=== PATIENT | male | born 1980 | race Caucasian/White ===

== ENCOUNTER 2018-12-05 18:14 | Emergency (ER) | payer SELFPAY ==
[~2018-12-05] VITALS: Ht 172.7 cm; Wt 92.2 kg
--- NOTE | 2018-12-05 18:59 | NUR ---
PT C/O RT FOOT SWELLING, STARTED IN , WAS SEEN AT [facility] IN JUL & WAS GIVEN ANTIBIOTICS. HX DM. A&OX4, RESP EVEN & UNLABORED, SPEECH CLEAR, SKIN WNL. RT FOOT: OLD LAC LATERAL BOTTOM OF FOOT, + SWELLING AT SITE, PEDAL PULSE STRONG & REG. LT FOOT: 2ND TOE AMPUTATED 02/2018. HX DM
[2018-12-05] MEDS ORDERED: INSU100I34 SC (19:06)
[2018-12-05] MEDS ORDERED: INSU100V9 SC (19:08)
[2018-12-05 19:41] LABS: BASOPHILS # (AUTO) 0.03 x10^3/uL (0-0.1); BASOPHILS % (AUTO) 1 % (0-1); EOSINOPHILS # (AUTO) 0.22 x10^3/uL (0-0.4); EOSINOPHILS % (AUTO) 4 % (1-7); LYMPHOCYTES # (AUTO) 2.18 x10^3/uL (1-3.4); LYMPHOCYTES % (AUTO) 35 % (22-44); MD NO; MEAN CORPUSCULAR HEMOGLOBIN 30.2 pg (27.5-34.5); MEAN CORPUSCULAR HGB CONC 34.5 g/dL (33.2-36.2); MEAN CORPUSCULAR VOLUME 87.6 fL (81-97); MONOCYTES # (AUTO) 0.58 x10^3/uL (0.2-0.8); MONOCYTES % (AUTO) 9 % (2-9); NEUTROPHILS # (AUTO) 3.17 x10^3/uL (1.8-6.8); NEUTROPHILS % (AUTO) 51 % (42-75); PLATELET COUNT 299 x10^3/uL (130-400); RED BLOOD COUNT 4.62 x10^6/uL (4.38-5.82); RED CELL DISTRIBUTION WIDTH 14.7 % (9.4-14.8)
[2018-12-05 19:53] LABS: ALBUMIN 3.3 g/dL (3.4-5.0); ANION GAP 8 mmol/L (5-15); CALCIUM 8.6 mg/dL (8.5-10.1); CHLORIDE 96 mmol/L (98-107); CREATININE 1.24 mg/dL (0.7-1.3)
--- NOTE | 2018-12-05 20:23 | NUR ---
PT RESTING QUIETLY, SIDE RAILS UP X2, CALL LIGHT W/IN REACH. AWAITING DISPOSITION.
[2018-12-05] MEDS ORDERED: SODIUM CHLORIDE 0.9% 1,000ML IVBOLUS ONE (21:00)
--- NOTE | 2018-12-05 21:26 | NUR ---
DRESSING APPLIED TO FOOT WOUND. IV NS INFUSING W-O; SITE PATENT. PT EATING PIZZA. GIRLFRIEND IN ROOM.
[2018-12-05 22:30] VITALS: BP 116/74
== END 2018-12-05 22:32 | disposition home or self-care (01) ==
LOC: ED 19:37
DX: E10.65 Type 1 diabetes mellitus with hyperglycemia (principal); E10.621 Type 1 diabetes mellitus with foot ulcer
CPT/HCPCS: 36415; 73630; 80048; 82040; 83605; 85025; 87040; 96360; 99284; J7030

== ENCOUNTER 2018-12-10 19:16 | Inpatient (IN) | payer OTHER ==
[~2018-12-10] VITALS: Ht 172.7 cm; Wt 90.0 kg
[~2018-12-10 19:16] MED LIST: INSU100I34 SC; INSU100V9 SC
--- NOTE | 2018-12-10 20:27 | NUR ---
report taken from BETHANY Pena. per MD Ortiz, no blood cx needed before IV abx.
[2018-12-10] MEDS ORDERED: VANCOMYCIN PER PHARMACY MC PRN ×2 (20:30→22:30)
[2018-12-10] MEDS ORDERED: AMPICILLIN/SULBACTAM 3 GM in SODIUM CHLORIDE 0.9% 100 ML IV ONE (20:30)
[2018-12-10] MEDS ORDERED: VANCOMYCIN 1,800 MG in SODIUM CHLORIDE 0.9% 250 ML IV ONE (20:30)
[2018-12-10] MEDS ORDERED: PHARMACOKINETIC CONSULTATION MC ONE (20:30)
[2018-12-10 20:32] LABS: BASOPHILS # (AUTO) 0.03 x10^3/uL (0-0.1); BASOPHILS % (AUTO) 1 % (0-1); EOSINOPHILS # (AUTO) 0.23 x10^3/uL (0-0.4); EOSINOPHILS % (AUTO) 3 % (1-7); LYMPHOCYTES # (AUTO) 1.88 x10^3/uL (1-3.4); LYMPHOCYTES % (AUTO) 27 % (22-44); MD NO; MEAN CORPUSCULAR HEMOGLOBIN 29.9 pg (27.5-34.5); MEAN CORPUSCULAR HGB CONC 34.1 g/dL (33.2-36.2); MEAN CORPUSCULAR VOLUME 87.7 fL (81-97); MEAN PLATELET VOLUME 6.8 fL (7.4-10.4); MONOCYTES # (AUTO) 0.44 x10^3/uL (0.2-0.8); MONOCYTES % (AUTO) 6 % (2-9); NEUTROPHILS # (AUTO) 4.31 x10^3/uL (1.8-6.8); NEUTROPHILS % (AUTO) 63 % (42-75); PLATELET COUNT 311 x10^3/uL (130-400); RED BLOOD COUNT 4.52 x10^6/uL (4.38-5.82); RED CELL DISTRIBUTION WIDTH 14.9 % (9.4-14.8)
[2018-12-10] MEDS ORDERED: INSU100I15 SQ (20:37)
[2018-12-10 20:39] LABS: ALANINE AMINOTRANSFERASE 24 U/L (12-78); ALBUMIN 3.1 g/dL (3.4-5.0); ANION GAP 13 mmol/L (5-15); CALCIUM 8.6 mg/dL (8.5-10.1); CHLORIDE 99 mmol/L (98-107); CREATININE 1.25 mg/dL (0.7-1.3)
[2018-12-10 20:46] LABS: ALKALINE PHOSPHATASE 177 U/L (45-117); BILIRUBIN,TOTAL 0.2 mg/dL (0.2-1.0); TOTAL PROTEIN 7.3 g/dL (6.4-8.2)
--- NOTE | 2018-12-10 20:49 | NUR ---
CONTACT ISOLATION PRECAUTIONS IN PLACE D/T HX MRSA
[2018-12-10 21:10] LABS: HCT (SEDRATE) 39.6 % (39.2-51.8)
[2018-12-10] MEDS ORDERED: NS + 20MEQ KCL 1,000 ML IV SCH (22:03)
--- NOTE | 2018-12-10 22:20 | NUR ---
report called to receiving RN Glenys
--- NOTE | 2018-12-10 22:26 | NUR ---
pt a&o, resps even and unlabored. pt denies pain. pt transported to room 455 with s/o. nadn at transport.
[2018-12-10] MEDS ORDERED: POLYETHYLENE GLYCOL 17 GM PACKET PO PRN (22:30)
[2018-12-10] MEDS ORDERED: DEXTROSE 50%, 50ML SYRINGE IVPush PRN (22:30)
[2018-12-10] MEDS: SODIUM CHLORIDE FLUSH 10ML SYR IVF SCH (22:30)
[2018-12-10] MEDS ORDERED: DOCUSATE 100 MG CAPSULE PO PRN (22:30)
[2018-12-10] MEDS ORDERED: ONDANSETRON 2MG/ML, 2ML IVPush PRN (22:30)
[2018-12-10] MEDS ORDERED: HYDROcodone/APAP 5/325 TABLET PO PRN (22:30)
[2018-12-10] MEDS ORDERED: morphine SULFATE 10 MG/ML, 1ML IVPush PRN (22:30)
[2018-12-10] MEDS ORDERED: GLUCAGON 1 MG IM PRN (22:30)
[2018-12-10] MEDS ORDERED: DEXTROSE 4 GM TAB.CHEW PO PRN (22:30)
[2018-12-10 22:39] VITALS: BP 119/65
[2018-12-10] MEDS ORDERED: PHARMACOKINETIC MONITORING MC PRN (23:00)
[2018-12-11] MEDS: INSULIN GLARGINE 100 UNITS/ML, PEN SQ-INSULIN SCH ×2 (00:38→23:05)
[2018-12-11 01:19] VITALS: BP 135/82
[2018-12-11 05:06] LABS: ANION GAP 7 mmol/L (5-15); CALCIUM 8.2 mg/dL (8.5-10.1); CHLORIDE 105 mmol/L (98-107); CREATININE 0.74 mg/dL (0.7-1.3)
[2018-12-11] MEDS: INSULIN LISPRO 100 UNITS/ML, PEN SQ-INSULIN SCH ×4 (07:19→21:27)
[2018-12-11] MEDS ORDERED: GADOBUTROL 10 MMOL/10 ML PFS ONE (09:53)
[2018-12-11 09:55] VITALS: BP 143/93
[2018-12-11] MEDS: SODIUM CHLORIDE FLUSH 10ML SYR IVF SCH ×2 (10:21→21:27)
[2018-12-11] MEDS: VANCOMYCIN 1,800 MG in SODIUM CHLORIDE 0.9% 250 ML IV SCH ×2 (10:21→21:27)
[2018-12-11] MEDS ORDERED: VANCOMYCIN 1,800 MG in SODIUM CHLORIDE 0.9% 250 ML IV SCH (15:00)
[2018-12-11 16:55] VITALS: BP 155/97
[2018-12-11 18:59] VITALS: BP 164/103
[2018-12-12 00:29] VITALS: BP 158/92
[2018-12-12] MEDS: INSULIN LISPRO 100 UNITS/ML, PEN SQ-INSULIN SCH ×4 (07:40→21:58)
[2018-12-12 08:10] VITALS: BP 146/87
[2018-12-12] MEDS: SODIUM CHLORIDE FLUSH 10ML SYR IVF SCH ×3 (09:00→21:58)
[2018-12-12] MEDS: VANCOMYCIN 1,800 MG in SODIUM CHLORIDE 0.9% 250 ML IV SCH ×2 (09:51→21:57)
[2018-12-12] MEDS: PIPERACILLIN/TAZO/PMX 3.375GM 50 ML IV SCH ×2 (12:25→19:45)
[2018-12-12] MEDS ORDERED: DEXTROSE 4 GM TAB.CHEW PO PRN (12:30)
[2018-12-12] MEDS ORDERED: DEXTROSE 50%, 50ML SYRINGE IVPush PRN (12:30)
[2018-12-12] MEDS ORDERED: GLUCAGON 1 MG IM PRN (12:30)
[2018-12-12 15:30] VITALS: BP 143/92
[2018-12-12] MEDS ORDERED: HYDROmorphone 2 MG/ML, 1ML IVPush PRN (17:00)
[2018-12-12] MEDS ORDERED: MEPERIDINE/PF 25MG/0.5ML IVPush PRN (17:00)
[2018-12-12] MEDS ORDERED: HALOPERIDOL 5 MG/ML IV PRN (17:00)
[2018-12-12] MEDS ORDERED: FENTANYL PF 100 MCG/2ML IV PRN (17:00)
[2018-12-12] MEDS ORDERED: PROMETHAZINE 25 MG/ML, 1ML IV PRN (17:00)
[2018-12-12] MEDS ORDERED: DIPHENHYDRAMINE 50 MG/ML, 1ML IVPush PRN (17:00)
[2018-12-12] MEDS ORDERED: PROCHLORPERAZINE 5 MG/ML, 2ML IV PRN (17:00)
[2018-12-12] MEDS ORDERED: hydrALAzine 20 MG/ML, 1ML IV PRN (17:00)
[2018-12-12] MEDS ORDERED: OXYcodone 5 MG/5 ML ORAL.SOL UDC PO PRN (17:00)
[2018-12-12] MEDS ORDERED: METOPROLOL 1 MG/ML, 5ML IV PRN (17:00)
[2018-12-12] MEDS ORDERED: LABETALOL 5MG/ML, 20ML IV PRN (17:00)
[2018-12-12] MEDS ORDERED: PROPOFOL 10 MG/ML, 20ML ONE (17:01)
[2018-12-12] MEDS ORDERED: ONDANSETRON 2MG/ML, 2ML ONE (17:01)
[2018-12-12] MEDS ORDERED: FENTANYL PF 100 MCG/2ML ONE (17:09)
[2018-12-12] MEDS: ACETAMINOPHEN 325 MG TABLET PO PRN ×2 (18:05→22:26)
[2018-12-12] MEDS ORDERED: ACETAMINOPHEN 650 MG/20.3 ML UDC ONE (18:05)
[2018-12-12 18:38] VITALS: BP 126/85
[2018-12-12] MEDS: INSULIN GLARGINE 100 UNITS/ML, PEN SQ-INSULIN SCH (21:57)
[2018-12-13 01:30] VITALS: BP 131/78
[2018-12-13] MEDS: PIPERACILLIN/TAZO/PMX 3.375GM 50 ML IV SCH ×4 (01:41→20:23)
[2018-12-13] MEDS: ACETAMINOPHEN 325 MG TABLET PO PRN ×2 (04:50→11:56)
[2018-12-13 06:58] VITALS: BP 122/76
[2018-12-13] MEDS: INSULIN LISPRO 100 UNITS/ML, PEN SQ-INSULIN SCH ×4 (07:54→20:41)
[2018-12-13] MEDS: SODIUM CHLORIDE FLUSH 10ML SYR IVF SCH ×4 (09:00→20:23)
[2018-12-13] MEDS: VANCOMYCIN 1,800 MG in SODIUM CHLORIDE 0.9% 250 ML IV SCH (09:00)
[2018-12-13] MEDS: VANCOMYCIN 2,000 MG in SODIUM CHLORIDE 0.9% 500 ML IV SCH ×2 (09:34→21:43)
[2018-12-13 13:16] VITALS: BP 125/78
[2018-12-13 20:33] VITALS: BP 144/90
[2018-12-13] MEDS: INSULIN GLARGINE 100 UNITS/ML, PEN SQ-INSULIN SCH (20:40)
[2018-12-14] MEDS: PIPERACILLIN/TAZO/PMX 3.375GM 50 ML IV SCH ×4 (02:01→20:15)
[2018-12-14 03:40] VITALS: BP 119/76
[2018-12-14] MEDS: INSULIN LISPRO 100 UNITS/ML, PEN SQ-INSULIN SCH ×4 (06:12→21:11)
[2018-12-14 07:14] VITALS: BP 115/70
[2018-12-14] MEDS: SODIUM CHLORIDE FLUSH 10ML SYR IVF SCH ×4 (09:13→20:17)
[2018-12-14] MEDS: VANCOMYCIN 2,000 MG in SODIUM CHLORIDE 0.9% 500 ML IV SCH ×2 (10:13→22:45)
[2018-12-14] MEDS: ACETAMINOPHEN 325 MG TABLET PO PRN (10:16)
[2018-12-14 14:34] VITALS: BP 157/97
[2018-12-14] MEDS: INSULIN GLARGINE 100 UNITS/ML, PEN SQ-INSULIN SCH (21:11)
[2018-12-15 01:29] VITALS: BP 149/94
[2018-12-15] MEDS: PIPERACILLIN/TAZO/PMX 3.375GM 50 ML IV SCH ×4 (01:48→20:45)
[2018-12-15] MEDS: VANCOMYCIN 2,000 MG in SODIUM CHLORIDE 0.9% 500 ML IV SCH ×2 (03:20→15:37)
[2018-12-15] MEDS: INSULIN LISPRO 100 UNITS/ML, PEN SQ-INSULIN SCH ×4 (07:55→21:22)
[2018-12-15] MEDS: SODIUM CHLORIDE FLUSH 10ML SYR IVF SCH ×4 (07:58→21:00)
[2018-12-15 08:35] LABS: BASOPHILS # (AUTO) 0.03 x10^3/uL (0-0.1); BASOPHILS % (AUTO) 1 % (0-1); EOSINOPHILS # (AUTO) 0.29 x10^3/uL (0-0.4); EOSINOPHILS % (AUTO) 6 % (1-7); LYMPHOCYTES # (AUTO) 1.58 x10^3/uL (1-3.4); LYMPHOCYTES % (AUTO) 33 % (22-44); MD NO; MEAN CORPUSCULAR HEMOGLOBIN 29.5 pg (27.5-34.5); MEAN CORPUSCULAR HGB CONC 33.8 g/dL (33.2-36.2); MEAN CORPUSCULAR VOLUME 87.3 fL (81-97); MEAN PLATELET VOLUME 6.1 fL (7.4-10.4); MONOCYTES # (AUTO) 0.35 x10^3/uL (0.2-0.8); MONOCYTES % (AUTO) 7 % (2-9); NEUTROPHILS # (AUTO) 2.53 x10^3/uL (1.8-6.8); NEUTROPHILS % (AUTO) 53 % (42-75); PLATELET COUNT 360 x10^3/uL (130-400); RED BLOOD COUNT 4.49 x10^6/uL (4.38-5.82); RED CELL DISTRIBUTION WIDTH 14.5 % (9.4-14.8)
[2018-12-15 08:41] LABS: ANION GAP 6 mmol/L (5-15); CALCIUM 8.6 mg/dL (8.5-10.1); CHLORIDE 104 mmol/L (98-107); CREATININE 0.87 mg/dL (0.7-1.3)
[2018-12-15 08:57] VITALS: BP 138/78
[2018-12-15 13:58] VITALS: BP 149/91
[2018-12-15 19:43] VITALS: BP 167/102
[2018-12-15] MEDS: INSULIN GLARGINE 100 UNITS/ML, PEN SQ-INSULIN SCH (21:23)
[2018-12-16] MEDS: PIPERACILLIN/TAZO/PMX 3.375GM 50 ML IV SCH ×4 (02:19→21:18)
[2018-12-16] MEDS: VANCOMYCIN 2,000 MG in SODIUM CHLORIDE 0.9% 500 ML IV SCH ×2 (03:13→15:15)
[2018-12-16 03:31] VITALS: BP 112/78
[2018-12-16] MEDS: INSULIN LISPRO 100 UNITS/ML, PEN SQ-INSULIN SCH ×4 (06:22→21:37)
[2018-12-16 07:19] VITALS: BP 118/80
[2018-12-16] MEDS: SODIUM CHLORIDE FLUSH 10ML SYR IVF SCH ×2 (08:28→21:00)
[2018-12-16 14:49] VITALS: BP 117/70
[2018-12-16] MEDS ORDERED: VANCOMYCIN 1,000 MG ONE (17:11)
[2018-12-16] MEDS ORDERED: MIDAZOLAM 1 MG/ML, 2ML ONE (17:20)
[2018-12-16] MEDS ORDERED: FENTANYL PF 250 MCG/5ML ONE (17:20)
[2018-12-16] MEDS ORDERED: ROCURONIUM 10 MG/ML,10ML ONE (17:22)
[2018-12-16] MEDS ORDERED: ONDANSETRON 2MG/ML, 2ML ONE (17:22)
[2018-12-16] MEDS ORDERED: PROPOFOL 10 MG/ML, 20ML ONE (17:22)
[2018-12-16] MEDS ORDERED: SUCCINYLCHOLINE 20 MG/ML, 10ML ONE (17:22)
[2018-12-16] MEDS ORDERED: HYDROmorphone 1 MG/ML, 1ML IV PRN (17:30)
[2018-12-16] MEDS ORDERED: LABETALOL 5MG/ML, 20ML IV PRN (17:30)
[2018-12-16] MEDS ORDERED: ONDANSETRON 2MG/ML, 2ML IVPush PRN (17:30)
[2018-12-16] MEDS ORDERED: MEPERIDINE/PF 25MG/0.5ML IVPush PRN (17:30)
[2018-12-16] MEDS ORDERED: ALBUTEROL SULFATE 2.5 MG/3 ML NPPB PRN (17:30)
[2018-12-16] MEDS ORDERED: KETOROLAC 30 MG/1 ML IV PRN (17:30)
[2018-12-16] MEDS ORDERED: FENTANYL PF 100 MCG/2ML IV PRN (17:30)
[2018-12-16] MEDS ORDERED: hydrALAzine 20 MG/ML, 1ML IV PRN (17:30)
[2018-12-16] MEDS ORDERED: METOCLOPRAMIDE 5 MG/ML, 2ML IV PRN (17:30)
[2018-12-16] MEDS ORDERED: OXYcodone 5 MG/5 ML ORAL.SOL UDC PO PRN (17:30)
[2018-12-16] MEDS ORDERED: PROMETHAZINE 25 MG/ML, 1ML IV PRN (17:30)
[2018-12-16 19:30] VITALS: BP 154/93
[2018-12-16] MEDS: ACETAMINOPHEN 325 MG TABLET PO PRN (21:18)
[2018-12-16] MEDS: INSULIN GLARGINE 100 UNITS/ML, PEN SQ-INSULIN SCH (21:37)
[2018-12-16] MEDS: VANCOMYCIN 1,700 MG in SODIUM CHLORIDE 0.9% 250 ML IV SCH (22:13)
[2018-12-16 23:55] VITALS: BP 162/92
[2018-12-17] MEDS: ACETAMINOPHEN 325 MG TABLET PO PRN ×3 (01:24→21:26)
[2018-12-17] MEDS: PIPERACILLIN/TAZO/PMX 3.375GM 50 ML IV SCH ×4 (03:27→22:58)
[2018-12-17 03:35] VITALS: BP 148/82
[2018-12-17 07:15] VITALS: BP 156/97
[2018-12-17] MEDS: INSULIN LISPRO 100 UNITS/ML, PEN SQ-INSULIN SCH ×4 (07:40→21:25)
[2018-12-17] MEDS: SODIUM CHLORIDE FLUSH 10ML SYR IVF SCH ×2 (09:00→21:23)
[2018-12-17 14:10] VITALS: BP 143/85
[2018-12-17 16:01] LABS: CLOSTRIDIUM DIFFICILE ANTIGEN NEGATIVE; CLOSTRIDIUM DIFFICILE TOXIN NEGATIVE (Negative)
[2018-12-17] MEDS: VANCOMYCIN 1,700 MG in SODIUM CHLORIDE 0.9% 250 ML IV SCH (17:51)
[2018-12-17 20:17] VITALS: BP 154/88
[2018-12-17] MEDS: INSULIN GLARGINE 100 UNITS/ML, PEN SQ-INSULIN SCH (21:25)
[2018-12-18 01:06] VITALS: BP 133/78
[2018-12-18] MEDS: PIPERACILLIN/TAZO/PMX 3.375GM 50 ML IV SCH ×2 (04:25→10:16)
[2018-12-18] MEDS: ACETAMINOPHEN 325 MG TABLET PO PRN ×3 (04:25→21:53)
[2018-12-18 05:20] LABS: ANION GAP 5 mmol/L (5-15); CALCIUM 8.8 mg/dL (8.5-10.1); CHLORIDE 104 mmol/L (98-107); CREATININE 1.31 mg/dL (0.7-1.3)
[2018-12-18 05:42] LABS: BASOPHILS # (AUTO) 0.04 x10^3/uL (0-0.1); BASOPHILS % (AUTO) 1 % (0-1); EOSINOPHILS # (AUTO) 0.38 x10^3/uL (0-0.4); EOSINOPHILS % (AUTO) 6 % (1-7); LYMPHOCYTES # (AUTO) 2.55 x10^3/uL (1-3.4); LYMPHOCYTES % (AUTO) 37 % (22-44); MD NO; MEAN CORPUSCULAR HEMOGLOBIN 29.6 pg (27.5-34.5); MEAN CORPUSCULAR HGB CONC 33.8 g/dL (33.2-36.2); MEAN CORPUSCULAR VOLUME 87.8 fL (81-97); MEAN PLATELET VOLUME 6.2 fL (7.4-10.4); MONOCYTES # (AUTO) 0.51 x10^3/uL (0.2-0.8); MONOCYTES % (AUTO) 7 % (2-9); NEUTROPHILS # (AUTO) 3.51 x10^3/uL (1.8-6.8); NEUTROPHILS % (AUTO) 50 % (42-75); PLATELET COUNT 374 x10^3/uL (130-400); RED BLOOD COUNT 4.34 x10^6/uL (4.38-5.82); RED CELL DISTRIBUTION WIDTH 14.4 % (9.4-14.8)
[2018-12-18 07:36] VITALS: BP 152/99
[2018-12-18] MEDS: INSULIN LISPRO 100 UNITS/ML, PEN SQ-INSULIN SCH ×4 (07:59→21:51)
[2018-12-18] MEDS: SODIUM CHLORIDE FLUSH 10ML SYR IVF SCH ×2 (10:17→21:51)
[2018-12-18] MEDS: VANCOMYCIN 1,700 MG in SODIUM CHLORIDE 0.9% 250 ML IV SCH (11:51)
[2018-12-18 13:37] VITALS: BP 169/107
[2018-12-18] MEDS ORDERED: AMLODIPINE 5 MG TABLET PO ONE (16:00)
[2018-12-18] MEDS ORDERED: MAGNESIUM SULFATE PMX 2GM/50ML 50 ML IV ONE (17:00)
[2018-12-18 20:40] VITALS: BP 143/88
[2018-12-18] MEDS: INSULIN GLARGINE 100 UNITS/ML, PEN SQ-INSULIN SCH (21:50)
[2018-12-19 01:39] VITALS: BP 136/88
[2018-12-19] MEDS: ACETAMINOPHEN 325 MG TABLET PO PRN (04:38)
[2018-12-19 06:05] LABS: BASOPHILS # (AUTO) 0.04 x10^3/uL (0-0.1); BASOPHILS % (AUTO) 1 % (0-1); EOSINOPHILS # (AUTO) 0.41 x10^3/uL (0-0.4); EOSINOPHILS % (AUTO) 6 % (1-7); LYMPHOCYTES # (AUTO) 2.43 x10^3/uL (1-3.4); LYMPHOCYTES % (AUTO) 38 % (22-44); MD NO; MEAN CORPUSCULAR HEMOGLOBIN 29.2 pg (27.5-34.5); MEAN CORPUSCULAR HGB CONC 33.7 g/dL (33.2-36.2); MEAN CORPUSCULAR VOLUME 86.7 fL (81-97); MEAN PLATELET VOLUME 6.2 fL (7.4-10.4); MONOCYTES # (AUTO) 0.51 x10^3/uL (0.2-0.8); MONOCYTES % (AUTO) 8 % (2-9); NEUTROPHILS # (AUTO) 3.03 x10^3/uL (1.8-6.8); NEUTROPHILS % (AUTO) 47 % (42-75); PLATELET COUNT 366 x10^3/uL (130-400); RED BLOOD COUNT 4.44 x10^6/uL (4.38-5.82); RED CELL DISTRIBUTION WIDTH 14.7 % (9.4-14.8)
[2018-12-19 06:08] LABS: ANION GAP 7 mmol/L (5-15); CALCIUM 9.5 mg/dL (8.5-10.1); CHLORIDE 103 mmol/L (98-107); CREATININE 1.21 mg/dL (0.7-1.3)
[2018-12-19] MEDS: VANCOMYCIN 1,700 MG in SODIUM CHLORIDE 0.9% 250 ML IV SCH (06:08)
[2018-12-19] MEDS: INSULIN LISPRO 100 UNITS/ML, PEN SQ-INSULIN SCH ×4 (07:07→20:16)
[2018-12-19 07:21] VITALS: BP 139/82
[2018-12-19] MEDS ORDERED: INSULIN GLARGINE 100 UNITS/ML, PEN SQ-INSULIN SCH (09:00)
[2018-12-19] MEDS: AMLODIPINE 5 MG TABLET PO SCH (09:39)
[2018-12-19] MEDS: SODIUM CHLORIDE FLUSH 10ML SYR IVF SCH ×2 (09:39→20:17)
[2018-12-19] MEDS ORDERED: SODIUM CHLORIDE 0.9% 1,000ML IVBOLUS ONE (10:00)
[2018-12-19] MEDS: SODIUM CHLORIDE 0.9% IVPB SCH (13:30)
[2018-12-19] MEDS: DAPTOMYCIN IVPB SCH (13:30)
[2018-12-19 15:24] VITALS: BP 118/69
[2018-12-19 19:12] VITALS: BP 137/87
[2018-12-19] MEDS: INSULIN GLARGINE 100 UNITS/ML, PEN SQ-INSULIN SCH (20:16)
[2018-12-20 00:46] VITALS: BP 134/79
[2018-12-20 05:49] LABS: HCT (SEDRATE) 38.3 % (39.2-51.8)
[2018-12-20 05:59] LABS: C-REACTIVE PROTEIN, QUANT 2.1 mg/dL (0.02-0.49); CHOL/HDL RATIO 4.9; LDL/HDL RATIO 3.2 (0.5-3.0)
[2018-12-20 06:36] LABS: HEMOGLOBIN A1C 11.1 % (4.2-6.3)
[2018-12-20] MEDS: INSULIN LISPRO 100 UNITS/ML, PEN SQ-INSULIN SCH ×4 (07:00→20:45)
[2018-12-20] MEDS ORDERED: INSULIN GLARGINE 100 UNITS/ML, PEN SQ-INSULIN SCH (09:00)
[2018-12-20 09:04] VITALS: BP 131/75
[2018-12-20] MEDS: AMLODIPINE 5 MG TABLET PO SCH (09:06)
[2018-12-20] MEDS: SODIUM CHLORIDE FLUSH 10ML SYR IVF SCH ×2 (09:11→20:45)
[2018-12-20] MEDS: DAPTOMYCIN IVPB SCH (12:31)
[2018-12-20] MEDS: SODIUM CHLORIDE 0.9% IVPB SCH (12:31)
[2018-12-20 14:10] VITALS: BP 156/89
[2018-12-20 19:17] VITALS: BP 147/81
[2018-12-20] MEDS: INSULIN GLARGINE 100 UNITS/ML, PEN SQ-INSULIN SCH (20:46)
[2018-12-21 01:01] VITALS: BP 140/74
[2018-12-21 05:05] LABS: BASOPHILS # (AUTO) 0.06 x10^3/uL (0-0.1); BASOPHILS % (AUTO) 1 % (0-1); EOSINOPHILS # (AUTO) 0.37 x10^3/uL (0-0.4); EOSINOPHILS % (AUTO) 6 % (1-7); LYMPHOCYTES # (AUTO) 1.94 x10^3/uL (1-3.4); LYMPHOCYTES % (AUTO) 29 % (22-44); MD NO; MEAN CORPUSCULAR HEMOGLOBIN 29.9 pg (27.5-34.5); MEAN CORPUSCULAR HGB CONC 34.4 g/dL (33.2-36.2); MEAN CORPUSCULAR VOLUME 86.9 fL (81-97); MONOCYTES # (AUTO) 0.57 x10^3/uL (0.2-0.8); MONOCYTES % (AUTO) 9 % (2-9); NEUTROPHILS # (AUTO) 3.72 x10^3/uL (1.8-6.8); NEUTROPHILS % (AUTO) 56 % (42-75); PLATELET COUNT 337 x10^3/uL (130-400); RED BLOOD COUNT 4.27 x10^6/uL (4.38-5.82); RED CELL DISTRIBUTION WIDTH 14.1 % (9.4-14.8)
[2018-12-21 05:17] LABS: ANION GAP 5 mmol/L (5-15); CALCIUM 9.1 mg/dL (8.5-10.1); CHLORIDE 103 mmol/L (98-107); CREATININE 1.17 mg/dL (0.7-1.3)
[2018-12-21 07:10] VITALS: BP 130/75
[2018-12-21] MEDS: INSULIN LISPRO 100 UNITS/ML, PEN SQ-INSULIN SCH ×4 (07:55→21:22)
[2018-12-21] MEDS: SODIUM CHLORIDE FLUSH 10ML SYR IVF SCH ×2 (09:00→21:21)
[2018-12-21] MEDS ORDERED: INSULIN GLARGINE 100 UNITS/ML, PEN SQ-INSULIN SCH (09:00)
[2018-12-21] MEDS: AMLODIPINE 5 MG TABLET PO SCH (09:34)
[2018-12-21] MEDS: DAPTOMYCIN 600 MG in SODIUM CHLORIDE 0.9% 100 ML IVPB SCH (13:17)
[2018-12-21 13:19] VITALS: BP 131/79
[2018-12-21 20:52] VITALS: BP 152/96
[2018-12-21] MEDS: INSULIN GLARGINE 100 UNITS/ML, PEN SQ-INSULIN SCH (21:21)
[2018-12-22 06:02] VITALS: BP 134/78
[2018-12-22] MEDS: INSULIN LISPRO 100 UNITS/ML, PEN SQ-INSULIN SCH ×6 (07:00→21:36)
[2018-12-22 07:46] VITALS: BP 134/87
[2018-12-22] MEDS ORDERED: INSULIN GLARGINE 100 UNITS/ML, PEN SQ-INSULIN SCH ×2 (09:00→21:00)
[2018-12-22] MEDS: AMLODIPINE 5 MG TABLET PO SCH (09:10)
[2018-12-22] MEDS: SODIUM CHLORIDE FLUSH 10ML SYR IVF SCH ×2 (09:10→21:37)
[2018-12-22] MEDS: DAPTOMYCIN 600 MG in SODIUM CHLORIDE 0.9% 100 ML IVPB SCH (13:02)
[2018-12-22 14:14] VITALS: BP 153/90
[2018-12-22 19:57] VITALS: BP 137/79
[2018-12-23 02:47] VITALS: BP 142/84
[2018-12-23 06:38] VITALS: BP 131/84
[2018-12-23] MEDS: INSULIN LISPRO 100 UNITS/ML, PEN SQ-INSULIN SCH ×4 (07:00→21:29)
[2018-12-23] MEDS: AMLODIPINE 5 MG TABLET PO SCH (09:02)
[2018-12-23] MEDS: INSULIN GLARGINE 100 UNITS/ML, PEN SQ-INSULIN SCH (09:02)
[2018-12-23] MEDS: SODIUM CHLORIDE FLUSH 10ML SYR IVF SCH ×2 (09:02→22:26)
[2018-12-23] MEDS: DAPTOMYCIN 600 MG in SODIUM CHLORIDE 0.9% 100 ML IVPB SCH (12:04)
[2018-12-23 15:10] VITALS: BP 136/81
[2018-12-23 20:17] VITALS: BP 129/81
[2018-12-23] MEDS ORDERED: INSULIN GLARGINE 100 UNITS/ML, PEN SQ-INSULIN SCH (21:00)
[2018-12-24 02:01] VITALS: BP 136/79
[2018-12-24] MEDS: INSULIN LISPRO 100 UNITS/ML, PEN SQ-INSULIN SCH ×3 (07:00→16:10)
[2018-12-24 07:06] VITALS: BP 124/79
[2018-12-24] MEDS: AMLODIPINE 5 MG TABLET PO SCH (08:35)
[2018-12-24] MEDS: SODIUM CHLORIDE FLUSH 10ML SYR IVF SCH ×2 (08:35→21:14)
[2018-12-24] MEDS: INSULIN GLARGINE 100 UNITS/ML, PEN SQ-INSULIN SCH (09:00)
[2018-12-24 09:16] LABS: BASOPHILS % (AUTO) 0 % (0-1); EOSINOPHILS # (AUTO) 0.37 x10^3/uL (0-0.4); EOSINOPHILS % (AUTO) 6 % (1-7); LYMPHOCYTES # (AUTO) 2.23 x10^3/uL (1-3.4); LYMPHOCYTES % (AUTO) 37 % (22-44); MD NO; MEAN CORPUSCULAR HEMOGLOBIN 28.9 pg (27.5-34.5); MEAN CORPUSCULAR HGB CONC 32.9 g/dL (33.2-36.2); MEAN CORPUSCULAR VOLUME 87.7 fL (81-97); MEAN PLATELET VOLUME 6.7 fL (7.4-10.4); MONOCYTES # (AUTO) 0.38 x10^3/uL (0.2-0.8); MONOCYTES % (AUTO) 6 % (2-9); NEUTROPHILS # (AUTO) 2.98 x10^3/uL (1.8-6.8); NEUTROPHILS % (AUTO) 50 % (42-75); PLATELET COUNT 344 x10^3/uL (130-400); RED BLOOD COUNT 4.64 x10^6/uL (4.38-5.82); RED CELL DISTRIBUTION WIDTH 14.1 % (9.4-14.8)
[2018-12-24] MEDS ORDERED: DEXTROSE 5% 1,000 ML IV SCH (09:30)
[2018-12-24] MEDS ORDERED: DEXTROSE 50%, 50ML SYRINGE IVPush ONE (09:30)
[2018-12-24 09:33] LABS: ANION GAP 7 mmol/L (5-15); CHLORIDE 104 mmol/L (98-107)
[2018-12-24 09:38] LABS: CALCIUM 9.5 mg/dL (8.5-10.1); CREATININE 1.14 mg/dL (0.7-1.3)
[2018-12-24] MEDS: DAPTOMYCIN 600 MG in SODIUM CHLORIDE 0.9% 100 ML IVPB SCH (12:59)
[2018-12-24 13:43] VITALS: BP 133/82
[2018-12-24 19:29] VITALS: BP 143/85
[2018-12-25 00:41] VITALS: BP 138/87
[2018-12-25 07:47] VITALS: BP 109/74
[2018-12-25] MEDS: INSULIN GLARGINE 100 UNITS/ML, PEN SQ-INSULIN SCH (07:53)
[2018-12-25] MEDS: INSULIN LISPRO 100 UNITS/ML, PEN SQ-INSULIN SCH ×3 (07:54→16:31)
[2018-12-25] MEDS: AMLODIPINE 5 MG TABLET PO SCH (08:20)
[2018-12-25] MEDS: SODIUM CHLORIDE FLUSH 10ML SYR IVF SCH ×2 (08:21→22:47)
[2018-12-25] MEDS: DAPTOMYCIN 600 MG in SODIUM CHLORIDE 0.9% 100 ML IVPB SCH (11:55)
[2018-12-25 13:44] VITALS: BP 124/74
[2018-12-25 21:28] VITALS: BP 120/62
[2018-12-25 23:01] VITALS: BP 138/83
[2018-12-26 02:24] VITALS: BP 147/82
[2018-12-26 07:17] VITALS: BP 127/83
[2018-12-26] MEDS: AMLODIPINE 5 MG TABLET PO SCH (07:39)
[2018-12-26] MEDS: INSULIN LISPRO 100 UNITS/ML, PEN SQ-INSULIN SCH ×3 (07:40→16:20)
[2018-12-26] MEDS: SODIUM CHLORIDE FLUSH 10ML SYR IVF SCH ×2 (07:42→20:17)
[2018-12-26] MEDS: INSULIN GLARGINE 100 UNITS/ML, PEN SQ-INSULIN SCH (08:56)
[2018-12-26] MEDS: DAPTOMYCIN 600 MG in SODIUM CHLORIDE 0.9% 100 ML IVPB SCH (11:58)
[2018-12-26 12:19] VITALS: BP 137/89
[2018-12-26 20:48] VITALS: BP 128/67
[2018-12-27 01:05] VITALS: BP 120/63
[2018-12-27] MEDS: INSULIN LISPRO 100 UNITS/ML, PEN SQ-INSULIN SCH ×3 (07:00→16:44)
[2018-12-27 08:40] VITALS: BP 111/69
[2018-12-27] MEDS: AMLODIPINE 5 MG TABLET PO SCH (09:46)
[2018-12-27] MEDS: SODIUM CHLORIDE FLUSH 10ML SYR IVF SCH ×2 (09:47→21:57)
[2018-12-27] MEDS: INSULIN GLARGINE 100 UNITS/ML, PEN SQ-INSULIN SCH (09:47)
[2018-12-27] MEDS: DAPTOMYCIN 600 MG in SODIUM CHLORIDE 0.9% 100 ML IVPB SCH (12:49)
[2018-12-27 14:40] VITALS: BP 112/74
[2018-12-27 19:28] VITALS: BP_SYST 103; BP_SYST 150; BP_DIAS 63; BP_DIAS 85
[2018-12-28 01:24] VITALS: BP 152/76
[2018-12-28 06:37] LABS: BASOPHILS # (AUTO) 0.05 x10^3/uL (0-0.1); BASOPHILS % (AUTO) 1 % (0-1); EOSINOPHILS # (AUTO) 0.39 x10^3/uL (0-0.4); EOSINOPHILS % (AUTO) 6 % (1-7); LYMPHOCYTES # (AUTO) 2.15 x10^3/uL (1-3.4); LYMPHOCYTES % (AUTO) 35 % (22-44); MD NO; MEAN CORPUSCULAR HEMOGLOBIN 29.4 pg (27.5-34.5); MEAN CORPUSCULAR HGB CONC 34.1 g/dL (33.2-36.2); MEAN CORPUSCULAR VOLUME 86.4 fL (81-97); MEAN PLATELET VOLUME 7.1 fL (7.4-10.4); MONOCYTES % (AUTO) 6 % (2-9); NEUTROPHILS # (AUTO) 3.23 x10^3/uL (1.8-6.8); NEUTROPHILS % (AUTO) 52 % (42-75); PLATELET COUNT 308 x10^3/uL (130-400); RED BLOOD COUNT 4.54 x10^6/uL (4.38-5.82); RED CELL DISTRIBUTION WIDTH 13.8 % (9.4-14.8)
[2018-12-28 06:38] LABS: HCT (SEDRATE) 39.3 % (39.2-51.8)
[2018-12-28 06:49] LABS: ALANINE AMINOTRANSFERASE 29 U/L (12-78); ALBUMIN 3.2 g/dL (3.4-5.0); ANION GAP 5 mmol/L (5-15); C-REACTIVE PROTEIN, QUANT 0.72 mg/dL (0.02-0.49); CALCIUM 8.6 mg/dL (8.5-10.1); CHLORIDE 101 mmol/L (98-107); CREATININE 1.27 mg/dL (0.7-1.3)
[2018-12-28 06:51] LABS: ALKALINE PHOSPHATASE 115 U/L (45-117); BILIRUBIN,TOTAL 0.3 mg/dL (0.2-1.0); CREATINE KINASE, TOTAL 160 U/L (39-308); TOTAL PROTEIN 7.6 g/dL (6.4-8.2)
[2018-12-28 06:59] VITALS: BP 136/83
[2018-12-28] MEDS: INSULIN LISPRO 100 UNITS/ML, PEN SQ-INSULIN SCH ×5 (08:01→20:53)
[2018-12-28] MEDS: AMLODIPINE 5 MG TABLET PO SCH (08:48)
[2018-12-28] MEDS: INSULIN GLARGINE 100 UNITS/ML, PEN SQ-INSULIN SCH (08:48)
[2018-12-28] MEDS: SODIUM CHLORIDE FLUSH 10ML SYR IVF SCH ×2 (08:48→20:54)
[2018-12-28] MEDS: DAPTOMYCIN 600 MG in SODIUM CHLORIDE 0.9% 100 ML IVPB SCH (11:48)
[2018-12-28 14:32] VITALS: BP 132/74
[2018-12-28] MEDS ORDERED: INSULIN LISPRO 100 UNITS/ML, PEN SQ-INSULIN SCH (16:00)
[2018-12-28 19:24] VITALS: BP 146/84
[2018-12-29 02:10] VITALS: BP 133/74
[2018-12-29 07:56] VITALS: BP 120/76
[2018-12-29] MEDS: AMLODIPINE 5 MG TABLET PO SCH (08:55)
[2018-12-29] MEDS: INSULIN LISPRO 100 UNITS/ML, PEN SQ-INSULIN SCH ×4 (08:56→21:07)
[2018-12-29] MEDS: INSULIN GLARGINE 100 UNITS/ML, PEN SQ-INSULIN SCH (08:56)
[2018-12-29] MEDS: SODIUM CHLORIDE FLUSH 10ML SYR IVF SCH ×2 (09:00→21:06)
[2018-12-29] MEDS: DAPTOMYCIN 600 MG in SODIUM CHLORIDE 0.9% 100 ML IVPB SCH (11:42)
[2018-12-29 14:30] VITALS: BP 115/69
[2018-12-29 20:08] VITALS: BP 118/75
[2018-12-30 02:00] VITALS: BP 142/81
[2018-12-30] MEDS: INSULIN LISPRO 100 UNITS/ML, PEN SQ-INSULIN SCH ×4 (06:26→21:38)
[2018-12-30 08:35] VITALS: BP 104/72
[2018-12-30] MEDS: SODIUM CHLORIDE FLUSH 10ML SYR IVF SCH ×2 (08:52→21:31)
[2018-12-30] MEDS: AMLODIPINE 5 MG TABLET PO SCH (08:52)
[2018-12-30] MEDS: INSULIN GLARGINE 100 UNITS/ML, PEN SQ-INSULIN SCH (10:04)
[2018-12-30] MEDS: DAPTOMYCIN 600 MG in SODIUM CHLORIDE 0.9% 100 ML IVPB SCH (12:33)
[2018-12-30 13:45] VITALS: BP 136/78
[2018-12-30 19:21] VITALS: BP 145/80
[2018-12-31 01:05] VITALS: BP 135/81
[2018-12-31] MEDS: INSULIN LISPRO 100 UNITS/ML, PEN SQ-INSULIN SCH ×4 (07:00→21:38)
[2018-12-31 08:13] VITALS: BP 128/84
[2018-12-31] MEDS: AMLODIPINE 5 MG TABLET PO SCH (08:53)
[2018-12-31] MEDS: SODIUM CHLORIDE FLUSH 10ML SYR IVF SCH ×2 (08:55→21:27)
[2018-12-31] MEDS: INSULIN GLARGINE 100 UNITS/ML, PEN SQ-INSULIN SCH (08:55)
[2018-12-31] MEDS: DAPTOMYCIN 600 MG in SODIUM CHLORIDE 0.9% 100 ML IVPB SCH (12:35)
[2018-12-31 13:26] VITALS: BP 144/69
[2018-12-31 19:57] VITALS: BP 139/61
[2019-01-01 01:20] VITALS: BP 144/73
[2019-01-01 07:49] VITALS: BP 126/81
[2019-01-01] MEDS: INSULIN LISPRO 100 UNITS/ML, PEN SQ-INSULIN SCH ×4 (08:14→21:58)
[2019-01-01] MEDS: SODIUM CHLORIDE FLUSH 10ML SYR IVF SCH ×2 (09:00→21:43)
[2019-01-01] MEDS: AMLODIPINE 5 MG TABLET PO SCH (09:32)
[2019-01-01] MEDS: INSULIN GLARGINE 100 UNITS/ML, PEN SQ-INSULIN SCH ×3 (09:32→21:58)
[2019-01-01] MEDS: DAPTOMYCIN 600 MG in SODIUM CHLORIDE 0.9% 100 ML IVPB SCH (12:32)
[2019-01-01 14:00] VITALS: BP 132/85
[2019-01-01 18:40] VITALS: BP 136/59
[2019-01-02 01:14] VITALS: BP 141/68
[2019-01-02] MEDS: INSULIN LISPRO 100 UNITS/ML, PEN SQ-INSULIN SCH ×4 (06:32→21:01)
[2019-01-02 06:55] VITALS: BP 120/77
[2019-01-02] MEDS: AMLODIPINE 5 MG TABLET PO SCH (08:45)
[2019-01-02] MEDS: INSULIN GLARGINE 100 UNITS/ML, PEN SQ-INSULIN SCH ×2 (08:45→21:00)
[2019-01-02] MEDS: SODIUM CHLORIDE FLUSH 10ML SYR IVF SCH ×2 (08:45→21:00)
[2019-01-02] MEDS: DAPTOMYCIN 600 MG in SODIUM CHLORIDE 0.9% 100 ML IVPB SCH (12:36)
[2019-01-02 14:15] VITALS: BP 137/81
[2019-01-02 22:38] VITALS: BP 130/75
[2019-01-03 03:56] VITALS: BP 119/69
[2019-01-03 04:15] LABS: MEAN CORPUSCULAR HEMOGLOBIN 29.7 pg (27.5-34.5); MEAN CORPUSCULAR VOLUME 87.6 fL (81-97); MEAN PLATELET VOLUME 6.9 fL (7.4-10.4); PLATELET COUNT 261 x10^3/uL (130-400)
[2019-01-03 04:20] LABS: ANION GAP 3 mmol/L (5-15); CALCIUM 8.4 mg/dL (8.5-10.1); CHLORIDE 106 mmol/L (98-107)
[2019-01-03 04:29] LABS: BASOPHILS # (AUTO) 0.08 x10^3/uL (0-0.1); BASOPHILS % (AUTO) 1 % (0-1); EOSINOPHILS # (AUTO) 0.46 x10^3/uL (0-0.4); EOSINOPHILS % (AUTO) 6 % (1-7); LYMPHOCYTES # (AUTO) 2.22 x10^3/uL (1-3.4); LYMPHOCYTES % (AUTO) 31 % (22-44); MD SCAN; MONOCYTES # (AUTO) 0.51 x10^3/uL (0.2-0.8); MONOCYTES % (AUTO) 7 % (2-9); NEUTROPHILS # (AUTO) 3.92 x10^3/uL (1.8-6.8); NEUTROPHILS % (AUTO) 55 % (42-75)
[2019-01-03] MEDS: INSULIN LISPRO 100 UNITS/ML, PEN SQ-INSULIN SCH ×4 (07:00→21:15)
[2019-01-03 07:35] VITALS: BP 127/80
[2019-01-03] MEDS: INSULIN GLARGINE 100 UNITS/ML, PEN SQ-INSULIN SCH ×2 (09:00→21:16)
[2019-01-03] MEDS ORDERED: INSULIN GLARGINE 100 UNITS/ML, PEN SQ-INSULIN ONE ×2 (09:00→09:30)
[2019-01-03] MEDS: AMLODIPINE 5 MG TABLET PO SCH (09:22)
[2019-01-03] MEDS: SODIUM CHLORIDE FLUSH 10ML SYR IVF SCH ×2 (09:22→21:14)
[2019-01-03] MEDS: DAPTOMYCIN 600 MG in SODIUM CHLORIDE 0.9% 100 ML IVPB SCH (12:13)
[2019-01-03 12:50] VITALS: BP 123/7
[2019-01-03 19:10] VITALS: BP 152/83
[2019-01-04 02:19] VITALS: BP 146/77
[2019-01-04 05:21] LABS: HCT (SEDRATE) 36.5 % (39.2-51.8)
[2019-01-04 05:23] LABS: BASOPHILS # (AUTO) 0.03 x10^3/uL (0-0.1); BASOPHILS % (AUTO) 0 % (0-1); EOSINOPHILS # (AUTO) 0.35 x10^3/uL (0-0.4); EOSINOPHILS % (AUTO) 4 % (1-7); LYMPHOCYTES % (AUTO) 18 % (22-44); MD NO; MEAN CORPUSCULAR HEMOGLOBIN 29.7 pg (27.5-34.5); MEAN CORPUSCULAR HGB CONC 34.3 g/dL (33.2-36.2); MEAN CORPUSCULAR VOLUME 86.7 fL (81-97); MEAN PLATELET VOLUME 6.9 fL (7.4-10.4); MONOCYTES # (AUTO) 0.53 x10^3/uL (0.2-0.8); MONOCYTES % (AUTO) 6 % (2-9); NEUTROPHILS # (AUTO) 6.35 x10^3/uL (1.8-6.8); NEUTROPHILS % (AUTO) 72 % (42-75); PLATELET COUNT 261 x10^3/uL (130-400); RED BLOOD COUNT 4.21 x10^6/uL (4.38-5.82); RED CELL DISTRIBUTION WIDTH 13.6 % (9.4-14.8)
[2019-01-04 05:24] LABS: ALANINE AMINOTRANSFERASE 29 U/L (12-78); ALBUMIN 2.9 g/dL (3.4-5.0); ANION GAP 4 mmol/L (5-15); CALCIUM 8.5 mg/dL (8.5-10.1); CHLORIDE 105 mmol/L (98-107); CREATININE 0.95 mg/dL (0.7-1.3)
[2019-01-04 05:33] LABS: ALKALINE PHOSPHATASE 74 U/L (45-117); BILIRUBIN,TOTAL 0.3 mg/dL (0.2-1.0); TOTAL PROTEIN 7.4 g/dL (6.4-8.2)
[2019-01-04] MEDS: INSULIN LISPRO 100 UNITS/ML, PEN SQ-INSULIN SCH ×4 (07:22→20:52)
[2019-01-04 08:26] VITALS: BP 131/83
[2019-01-04] MEDS: INSULIN GLARGINE 100 UNITS/ML, PEN SQ-INSULIN SCH ×3 (09:00→20:53)
[2019-01-04] MEDS: AMLODIPINE 5 MG TABLET PO SCH (09:24)
[2019-01-04] MEDS: SODIUM CHLORIDE FLUSH 10ML SYR IVF SCH ×2 (09:52→20:52)
[2019-01-04] MEDS: DAPTOMYCIN 600 MG in SODIUM CHLORIDE 0.9% 100 ML IVPB SCH (12:01)
[2019-01-04 13:18] VITALS: BP 122/80
[2019-01-04 20:36] VITALS: BP 138/90
[2019-01-05 02:44] VITALS: BP 136/88
[2019-01-05] MEDS: INSULIN LISPRO 100 UNITS/ML, PEN SQ-INSULIN SCH ×4 (07:00→20:58)
[2019-01-05 07:33] VITALS: BP 123/77
[2019-01-05] MEDS ORDERED: INSULIN GLARGINE 100 UNITS/ML, PEN SQ-INSULIN SCH (09:00)
[2019-01-05] MEDS: SODIUM CHLORIDE FLUSH 10ML SYR IVF SCH ×2 (09:00→14:00)
[2019-01-05] MEDS: AMLODIPINE 5 MG TABLET PO SCH (09:22)
[2019-01-05] MEDS: INSULIN GLARGINE 100 UNITS/ML, PEN SQ-INSULIN SCH ×2 (09:23→20:58)
[2019-01-05 12:55] VITALS: BP 144/92
[2019-01-05] MEDS: DAPTOMYCIN 600 MG in SODIUM CHLORIDE 0.9% 100 ML IVPB SCH (12:55)
[2019-01-05 13:16] VITALS: BP 118/79
[2019-01-05 19:55] VITALS: BP 160/83
[2019-01-06 01:29] VITALS: BP 144/84
[2019-01-06 06:42] LABS: ANION GAP 6 mmol/L (5-15); CALCIUM 8.4 mg/dL (8.5-10.1); CHLORIDE 106 mmol/L (98-107); CREATININE 0.93 mg/dL (0.7-1.3)
[2019-01-06] MEDS: INSULIN LISPRO 100 UNITS/ML, PEN SQ-INSULIN SCH ×4 (07:00→21:14)
[2019-01-06 09:04] VITALS: BP 112/69
[2019-01-06] MEDS: INSULIN GLARGINE 100 UNITS/ML, PEN SQ-INSULIN SCH ×2 (09:06→21:13)
[2019-01-06] MEDS: SODIUM CHLORIDE FLUSH 10ML SYR IVF SCH ×2 (09:06→21:13)
[2019-01-06] MEDS: AMLODIPINE 5 MG TABLET PO SCH (09:06)
[2019-01-06] MEDS: DAPTOMYCIN 600 MG in SODIUM CHLORIDE 0.9% 100 ML IVPB SCH (12:21)
[2019-01-06 13:30] VITALS: BP 135/64
[2019-01-06 20:36] VITALS: BP 151/77
[2019-01-07 02:11] VITALS: BP 131/79
[2019-01-07] MEDS: INSULIN LISPRO 100 UNITS/ML, PEN SQ-INSULIN SCH ×4 (07:00→21:16)
[2019-01-07 08:43] VITALS: BP 126/81
[2019-01-07] MEDS: AMLODIPINE 5 MG TABLET PO SCH (08:45)
[2019-01-07] MEDS: INSULIN GLARGINE 100 UNITS/ML, PEN SQ-INSULIN SCH ×2 (08:46→21:16)
[2019-01-07] MEDS: SODIUM CHLORIDE FLUSH 10ML SYR IVF SCH ×2 (08:46→21:16)
[2019-01-07] MEDS: DAPTOMYCIN 600 MG in SODIUM CHLORIDE 0.9% 100 ML IVPB SCH (11:51)
[2019-01-07 15:47] VITALS: BP 146/80
[2019-01-07 19:20] VITALS: BP 135/72
[2019-01-08 00:20] VITALS: BP 133/70
[2019-01-08] MEDS: AMLODIPINE 5 MG TABLET PO SCH (08:02)
[2019-01-08] MEDS: SODIUM CHLORIDE FLUSH 10ML SYR IVF SCH ×2 (08:02→21:06)
[2019-01-08] MEDS: INSULIN LISPRO 100 UNITS/ML, PEN SQ-INSULIN SCH ×4 (08:03→21:07)
[2019-01-08] MEDS: INSULIN GLARGINE 100 UNITS/ML, PEN SQ-INSULIN SCH ×2 (08:03→21:07)
[2019-01-08 08:23] VITALS: BP 134/89
[2019-01-08] MEDS: DAPTOMYCIN 600 MG in SODIUM CHLORIDE 0.9% 100 ML IVPB SCH (12:43)
[2019-01-08 15:05] VITALS: BP 143/83
[2019-01-08 18:15] VITALS: BP 139/86
[2019-01-09 00:45] VITALS: BP 131/69
[2019-01-09] MEDS: INSULIN LISPRO 100 UNITS/ML, PEN SQ-INSULIN SCH ×4 (07:00→19:38)
[2019-01-09 07:22] VITALS: BP 124/73
[2019-01-09] MEDS: AMLODIPINE 5 MG TABLET PO SCH (08:42)
[2019-01-09] MEDS: INSULIN GLARGINE 100 UNITS/ML, PEN SQ-INSULIN SCH ×2 (08:43→19:38)
[2019-01-09] MEDS: SODIUM CHLORIDE FLUSH 10ML SYR IVF SCH ×2 (09:00→19:38)
[2019-01-09] MEDS: DAPTOMYCIN 600 MG in SODIUM CHLORIDE 0.9% 100 ML IVPB SCH (11:53)
[2019-01-09 13:46] VITALS: BP 113/73
[2019-01-09 19:18] VITALS: BP 143/80
[2019-01-10 02:47] VITALS: BP 138/84
[2019-01-10 03:14] VITALS: BP 122/78
[2019-01-10] MEDS: INSULIN LISPRO 100 UNITS/ML, PEN SQ-INSULIN SCH ×4 (07:00→20:36)
[2019-01-10 07:35] VITALS: BP 110/71
[2019-01-10] MEDS: SODIUM CHLORIDE FLUSH 10ML SYR IVF SCH ×2 (09:00→20:36)
[2019-01-10] MEDS ORDERED: CEFTRIAXONE PMX 2GM/50ML 50 ML IV SCH (09:00)
[2019-01-10] MEDS: AMLODIPINE 5 MG TABLET PO SCH (09:33)
[2019-01-10] MEDS: INSULIN GLARGINE 100 UNITS/ML, PEN SQ-INSULIN SCH ×2 (10:11→20:37)
[2019-01-10] MEDS: DAPTOMYCIN 600 MG in SODIUM CHLORIDE 0.9% 100 ML IVPB SCH (12:36)
[2019-01-10 15:22] VITALS: BP 129/75
[2019-01-10 20:26] VITALS: BP 152/88
[2019-01-11 02:00] VITALS: BP 125/82
[2019-01-11 06:37] LABS: BASOPHILS # (AUTO) 0.02 x10^3/uL (0-0.1); BASOPHILS % (AUTO) 0 % (0-1); EOSINOPHILS # (AUTO) 0.39 x10^3/uL (0-0.4); EOSINOPHILS % (AUTO) 7 % (1-7); LYMPHOCYTES # (AUTO) 1.84 x10^3/uL (1-3.4); LYMPHOCYTES % (AUTO) 33 % (22-44); MD NO; MEAN CORPUSCULAR HEMOGLOBIN 28.6 pg (27.5-34.5); MEAN CORPUSCULAR HGB CONC 33.4 g/dL (33.2-36.2); MEAN CORPUSCULAR VOLUME 85.8 fL (81-97); MEAN PLATELET VOLUME 6.7 fL (7.4-10.4); MONOCYTES # (AUTO) 0.47 x10^3/uL (0.2-0.8); MONOCYTES % (AUTO) 8 % (2-9); NEUTROPHILS # (AUTO) 2.94 x10^3/uL (1.8-6.8); NEUTROPHILS % (AUTO) 52 % (42-75); PLATELET COUNT 251 x10^3/uL (130-400); RED BLOOD COUNT 4.55 x10^6/uL (4.38-5.82); RED CELL DISTRIBUTION WIDTH 13.7 % (9.4-14.8)
[2019-01-11 06:47] LABS: ALBUMIN 3.1 g/dL (3.4-5.0); ANION GAP 4 mmol/L (5-15); C-REACTIVE PROTEIN, QUANT 0.88 mg/dL (0.02-0.49); CALCIUM 8.6 mg/dL (8.5-10.1); CHLORIDE 106 mmol/L (98-107)
[2019-01-11 06:49] LABS: ALANINE AMINOTRANSFERASE 39 U/L (12-78); ALKALINE PHOSPHATASE 69 U/L (45-117); BILIRUBIN,TOTAL 0.2 mg/dL (0.2-1.0); CREATINE KINASE, TOTAL 148 U/L (39-308); CREATININE 0.83 mg/dL (0.7-1.3)
[2019-01-11 06:57] LABS: HCT (SEDRATE) 36.6 % (39.2-51.8)
[2019-01-11] MEDS: INSULIN LISPRO 100 UNITS/ML, PEN SQ-INSULIN SCH ×4 (07:01→20:52)
[2019-01-11 07:57] VITALS: BP 105/70
[2019-01-11] MEDS: AMLODIPINE 5 MG TABLET PO SCH (08:39)
[2019-01-11] MEDS: SODIUM CHLORIDE FLUSH 10ML SYR IVF SCH ×2 (08:39→20:50)
[2019-01-11] MEDS: INSULIN GLARGINE 100 UNITS/ML, PEN SQ-INSULIN SCH ×2 (08:40→20:51)
[2019-01-11] MEDS: DAPTOMYCIN 600 MG in SODIUM CHLORIDE 0.9% 100 ML IVPB SCH (12:09)
[2019-01-11 12:44] VITALS: BP 144/82
[2019-01-11 20:18] VITALS: BP 142/83
[2019-01-12 00:06] VITALS: BP 123/78
[2019-01-12] MEDS: INSULIN LISPRO 100 UNITS/ML, PEN SQ-INSULIN SCH ×4 (07:00→20:57)
[2019-01-12 08:02] VITALS: BP 122/77
[2019-01-12] MEDS: INSULIN GLARGINE 100 UNITS/ML, PEN SQ-INSULIN SCH ×3 (08:02→20:56)
[2019-01-12] MEDS: SODIUM CHLORIDE FLUSH 10ML SYR IVF SCH ×2 (09:57→20:56)
[2019-01-12] MEDS: AMLODIPINE 5 MG TABLET PO SCH (09:57)
[2019-01-12] MEDS: DAPTOMYCIN 600 MG in SODIUM CHLORIDE 0.9% 100 ML IVPB SCH (12:45)
[2019-01-12 12:52] VITALS: BP 124/69
[2019-01-12 20:12] VITALS: BP 139/76
[2019-01-13 03:51] VITALS: BP 145/82
[2019-01-13 07:34] VITALS: BP 131/80
[2019-01-13] MEDS: AMLODIPINE 5 MG TABLET PO SCH (07:38)
[2019-01-13] MEDS: INSULIN GLARGINE 100 UNITS/ML, PEN SQ-INSULIN SCH ×2 (07:40→21:51)
[2019-01-13] MEDS: INSULIN LISPRO 100 UNITS/ML, PEN SQ-INSULIN SCH ×4 (07:40→21:51)
[2019-01-13 12:26] VITALS: BP 150/87
[2019-01-13] MEDS: DAPTOMYCIN 600 MG in SODIUM CHLORIDE 0.9% 100 ML IVPB SCH (13:20)
[2019-01-13] MEDS: SODIUM CHLORIDE FLUSH 10ML SYR IVF SCH ×2 (13:20→21:52)
[2019-01-13 19:30] VITALS: BP 129/80
[2019-01-14 00:48] VITALS: BP 125/78
[2019-01-14] MEDS: INSULIN LISPRO 100 UNITS/ML, PEN SQ-INSULIN SCH ×4 (06:33→21:15)
[2019-01-14 07:55] VITALS: BP 138/85
[2019-01-14] MEDS: AMLODIPINE 5 MG TABLET PO SCH (08:01)
[2019-01-14] MEDS: INSULIN GLARGINE 100 UNITS/ML, PEN SQ-INSULIN SCH ×4 (08:01→21:15)
[2019-01-14] MEDS: SODIUM CHLORIDE FLUSH 10ML SYR IVF SCH ×2 (08:02→21:12)
[2019-01-14] MEDS: DAPTOMYCIN 600 MG in SODIUM CHLORIDE 0.9% 100 ML IVPB SCH (11:46)
[2019-01-14 13:49] VITALS: BP 130/80
[2019-01-14 18:57] VITALS: BP 130/81
[2019-01-15 00:56] VITALS: BP 147/87
[2019-01-15] MEDS: INSULIN LISPRO 100 UNITS/ML, PEN SQ-INSULIN SCH ×4 (06:45→20:37)
[2019-01-15 07:33] VITALS: BP 133/84
[2019-01-15] MEDS: AMLODIPINE 5 MG TABLET PO SCH (08:32)
[2019-01-15] MEDS: INSULIN GLARGINE 100 UNITS/ML, PEN SQ-INSULIN SCH ×2 (08:33→20:38)
[2019-01-15] MEDS: SODIUM CHLORIDE FLUSH 10ML SYR IVF SCH ×2 (08:35→20:37)
[2019-01-15] MEDS: DAPTOMYCIN 600 MG in SODIUM CHLORIDE 0.9% 100 ML IVPB SCH (12:04)
[2019-01-15 15:20] VITALS: BP 165/90
[2019-01-15 18:40] VITALS: BP 136/77
[2019-01-16 01:31] VITALS: BP 145/87
[2019-01-16] MEDS: INSULIN LISPRO 100 UNITS/ML, PEN SQ-INSULIN SCH ×4 (06:32→21:39)
[2019-01-16 08:02] VITALS: BP 136/88
[2019-01-16] MEDS: AMLODIPINE 5 MG TABLET PO SCH (08:34)
[2019-01-16] MEDS: INSULIN GLARGINE 100 UNITS/ML, PEN SQ-INSULIN SCH ×2 (08:35→21:39)
[2019-01-16] MEDS: SODIUM CHLORIDE FLUSH 10ML SYR IVF SCH ×2 (08:35→21:38)
[2019-01-16] MEDS: DAPTOMYCIN 600 MG in SODIUM CHLORIDE 0.9% 100 ML IVPB SCH (11:32)
[2019-01-16] MEDS ORDERED: INSULIN GLARGINE 100 UNITS/ML, PEN SQ-INSULIN SCH ×2 (12:00)
[2019-01-16 14:04] VITALS: BP 130/76
[2019-01-16 20:28] VITALS: BP 129/79
[2019-01-17 01:51] VITALS: BP 127/83
[2019-01-17] MEDS: INSULIN LISPRO 100 UNITS/ML, PEN SQ-INSULIN SCH ×4 (07:00→21:41)
[2019-01-17 07:59] VITALS: BP 128/83
[2019-01-17] MEDS: AMLODIPINE 5 MG TABLET PO SCH (09:21)
[2019-01-17] MEDS: INSULIN GLARGINE 100 UNITS/ML, PEN SQ-INSULIN SCH ×2 (09:22→21:42)
[2019-01-17] MEDS: SODIUM CHLORIDE FLUSH 10ML SYR IVF SCH ×2 (09:22→21:40)
[2019-01-17] MEDS: DAPTOMYCIN 600 MG in SODIUM CHLORIDE 0.9% 100 ML IVPB SCH (11:42)
[2019-01-17 13:18] VITALS: BP 133/74
[2019-01-17 19:43] VITALS: BP 149/89
[2019-01-18 00:46] VITALS: BP 121/78
[2019-01-18 05:08] LABS: BASOPHILS # (AUTO) 0.03 x10^3/uL (0-0.1); BASOPHILS % (AUTO) 1 % (0-1); EOSINOPHILS # (AUTO) 0.37 x10^3/uL (0-0.4); EOSINOPHILS % (AUTO) 7 % (1-7); LYMPHOCYTES # (AUTO) 2.31 x10^3/uL (1-3.4); LYMPHOCYTES % (AUTO) 46 % (22-44); MD NO; MEAN CORPUSCULAR HEMOGLOBIN 29.5 pg (27.5-34.5); MEAN CORPUSCULAR HGB CONC 34.6 g/dL (33.2-36.2); MEAN CORPUSCULAR VOLUME 85.3 fL (81-97); MEAN PLATELET VOLUME 6.8 fL (7.4-10.4); MONOCYTES # (AUTO) 0.46 x10^3/uL (0.2-0.8); MONOCYTES % (AUTO) 9 % (2-9); NEUTROPHILS # (AUTO) 1.86 x10^3/uL (1.8-6.8); NEUTROPHILS % (AUTO) 37 % (42-75); PLATELET COUNT 239 x10^3/uL (130-400); RED BLOOD COUNT 4.62 x10^6/uL (4.38-5.82); RED CELL DISTRIBUTION WIDTH 13.9 % (9.4-14.8)
[2019-01-18 05:10] LABS: HCT (SEDRATE) 39.6 % (39.2-51.8)
[2019-01-18 05:19] LABS: ALBUMIN 3.4 g/dL (3.4-5.0); ANION GAP 4 mmol/L (5-15); CALCIUM 8.9 mg/dL (8.5-10.1); CHLORIDE 106 mmol/L (98-107)
[2019-01-18 05:23] LABS: BILIRUBIN,TOTAL 0.4 mg/dL (0.2-1.0); CREATININE 0.94 mg/dL (0.7-1.3)
[2019-01-18 05:24] LABS: ALANINE AMINOTRANSFERASE 35 U/L (12-78); ALKALINE PHOSPHATASE 72 U/L (45-117); C-REACTIVE PROTEIN, QUANT 0.83 mg/dL (0.02-0.49); CREATINE KINASE, TOTAL 157 U/L (39-308); TOTAL PROTEIN 7.3 g/dL (6.4-8.2)
[2019-01-18 06:54] VITALS: BP 120/79
[2019-01-18] MEDS: INSULIN LISPRO 100 UNITS/ML, PEN SQ-INSULIN SCH ×4 (07:16→20:49)
[2019-01-18] MEDS: INSULIN GLARGINE 100 UNITS/ML, PEN SQ-INSULIN SCH ×2 (08:39→20:48)
[2019-01-18] MEDS: AMLODIPINE 5 MG TABLET PO SCH (08:39)
[2019-01-18] MEDS: SODIUM CHLORIDE FLUSH 10ML SYR IVF SCH ×2 (08:40→20:47)
[2019-01-18] MEDS: DAPTOMYCIN 600 MG in SODIUM CHLORIDE 0.9% 100 ML IVPB SCH (12:41)
[2019-01-18 13:01] VITALS: BP 124/89
[2019-01-18 20:00] VITALS: BP 146/84
[2019-01-19 03:30] VITALS: BP 126/82
[2019-01-19] MEDS: INSULIN LISPRO 100 UNITS/ML, PEN SQ-INSULIN SCH ×4 (06:59→20:46)
[2019-01-19 07:07] VITALS: BP 122/81
[2019-01-19] MEDS: AMLODIPINE 5 MG TABLET PO SCH (08:41)
[2019-01-19] MEDS: INSULIN GLARGINE 100 UNITS/ML, PEN SQ-INSULIN SCH (08:41)
[2019-01-19] MEDS: SODIUM CHLORIDE FLUSH 10ML SYR IVF SCH ×2 (08:43→21:08)
[2019-01-19] MEDS: DAPTOMYCIN 600 MG in SODIUM CHLORIDE 0.9% 100 ML IVPB SCH (12:05)
[2019-01-19 13:02] VITALS: BP 115/80
[2019-01-19 20:00] VITALS: BP 144/85
[2019-01-19] MEDS ORDERED: INSULIN GLARGINE 100 UNITS/ML, PEN SQ-INSULIN SCH (21:00)
[2019-01-20 04:00] VITALS: BP 123/81
[2019-01-20] MEDS: INSULIN LISPRO 100 UNITS/ML, PEN SQ-INSULIN SCH ×4 (06:50→20:07)
[2019-01-20 07:26] VITALS: BP 137/75
[2019-01-20] MEDS: AMLODIPINE 5 MG TABLET PO SCH (08:00)
[2019-01-20] MEDS ORDERED: INSULIN GLARGINE 100 UNITS/ML, PEN SQ-INSULIN ONE (08:00)
[2019-01-20] MEDS ORDERED: INSULIN GLARGINE 100 UNITS/ML, PEN SQ-INSULIN SCH ×2 (09:00→21:00)
[2019-01-20] MEDS: DAPTOMYCIN 600 MG in SODIUM CHLORIDE 0.9% 100 ML IVPB SCH (11:42)
[2019-01-20] MEDS: SODIUM CHLORIDE FLUSH 10ML SYR IVF SCH ×2 (11:42→20:05)
[2019-01-20 13:04] VITALS: BP 133/84
[2019-01-20 19:03] VITALS: BP 138/86
[2019-01-21 05:23] VITALS: BP 123/77
[2019-01-21] MEDS ORDERED: MIDAZOLAM 1 MG/ML, 2ML ONE (06:47)
[2019-01-21] MEDS ORDERED: PROPOFOL 50 ML ONE (06:47)
[2019-01-21] MEDS ORDERED: FENTANYL PF 250 MCG/5ML ONE (06:47)
[2019-01-21] MEDS ORDERED: ONDANSETRON 2MG/ML, 2ML ONE (06:58)
[2019-01-21] MEDS: INSULIN LISPRO 100 UNITS/ML, PEN SQ-INSULIN SCH ×4 (07:00→20:51)
[2019-01-21] MEDS ORDERED: VANCOMYCIN 500 MG ONE (07:14)
[2019-01-21] MEDS ORDERED: VANCOMYCIN 500 MG IVPB ONE (07:18)
[2019-01-21] MEDS ORDERED: DIAZEPAM 5 MG/ML, 2ML IVPush PRN (07:30)
[2019-01-21] MEDS ORDERED: EPHEDRINE 50 MG/ML, 1ML IM PRN (07:30)
[2019-01-21] MEDS ORDERED: MORPHINE SULFATE 4 MG/ML, 1ML IVPush PRN (07:30)
[2019-01-21] MEDS ORDERED: FENTANYL PF 100 MCG/2ML IV PRN (07:30)
[2019-01-21] MEDS ORDERED: OXYcodone 5 MG/5 ML ORAL.SOL UDC PO PRN (07:30)
[2019-01-21] MEDS ORDERED: EPHEDRINE 50 MG/ML, 1ML IVPush PRN (07:30)
[2019-01-21] MEDS ORDERED: MEPERIDINE/PF 25MG/0.5ML IVPush PRN (07:30)
[2019-01-21] MEDS ORDERED: PROMETHAZINE 12.5 MG SUPP PR PRN (07:30)
[2019-01-21] MEDS ORDERED: MIDAZOLAM 1 MG/ML, 2ML IV PRN (07:30)
[2019-01-21] MEDS ORDERED: DIPHENHYDRAMINE 50 MG/ML, 1ML IVPush PRN (07:30)
[2019-01-21] MEDS ORDERED: ONDANSETRON ODT 8 MG PO PRN (07:30)
[2019-01-21] MEDS ORDERED: PROMETHAZINE 25 MG/ML, 1ML IV PRN (07:30)
[2019-01-21] MEDS ORDERED: ONDANSETRON 2MG/ML, 2ML IV PRN (07:30)
[2019-01-21] MEDS ORDERED: PROMETHAZINE 25 MG SUPP PR PRN (07:30)
[2019-01-21] MEDS ORDERED: OXYcodone 5 MG/5 ML ORAL.SOL UDC ONE (08:09)
[2019-01-21 08:40] VITALS: BP 101/72
[2019-01-21] MEDS: AMLODIPINE 5 MG TABLET PO SCH (09:00)
[2019-01-21] MEDS ORDERED: INSULIN GLARGINE 100 UNITS/ML, PEN SQ-INSULIN SCH ×2 (09:00→21:00)
[2019-01-21] MEDS: SODIUM CHLORIDE FLUSH 10ML SYR IVF SCH ×2 (09:08→20:51)
[2019-01-21] MEDS: DAPTOMYCIN 600 MG in SODIUM CHLORIDE 0.9% 100 ML IVPB SCH (12:18)
[2019-01-21 13:55] VITALS: BP 130/78
[2019-01-21] MEDS: CEFTRIAXONE PMX 2GM/50ML 50 ML IV SCH (16:39)
[2019-01-21 19:29] VITALS: BP 121/72
[2019-01-22 01:36] VITALS: BP 154/95
[2019-01-22] MEDS: INSULIN LISPRO 100 UNITS/ML, PEN SQ-INSULIN SCH ×4 (07:32→20:49)
[2019-01-22 07:41] VITALS: BP 139/86
[2019-01-22] MEDS ORDERED: ACETAMINOPHEN 325 MG TABLET PO PRN (08:00)
[2019-01-22] MEDS: CARVEDILOL 6.25 MG TABLET PO SCH ×2 (08:09→18:13)
[2019-01-22] MEDS: SODIUM CHLORIDE FLUSH 10ML SYR IVF SCH ×2 (08:11→20:49)
[2019-01-22] MEDS ORDERED: INSULIN GLARGINE 100 UNITS/ML, PEN SQ-INSULIN SCH (09:00)
[2019-01-22] MEDS: DAPTOMYCIN 600 MG in SODIUM CHLORIDE 0.9% 100 ML IVPB SCH (12:47)
[2019-01-22 13:51] VITALS: BP 130/78
[2019-01-22] MEDS: CEFTRIAXONE PMX 2GM/50ML 50 ML IV SCH (16:15)
[2019-01-22 18:58] VITALS: BP 130/71
[2019-01-23 01:01] VITALS: BP 130/62
[2019-01-23] MEDS: CARVEDILOL 6.25 MG TABLET PO SCH ×2 (06:00→18:07)
[2019-01-23 06:30] VITALS: BP 137/87
[2019-01-23] MEDS: INSULIN LISPRO 100 UNITS/ML, PEN SQ-INSULIN SCH ×4 (07:46→20:24)
[2019-01-23 07:55] VITALS: BP 126/82
[2019-01-23] MEDS: SODIUM CHLORIDE FLUSH 10ML SYR IVF SCH ×2 (09:02→20:24)
[2019-01-23] MEDS: INSULIN GLARGINE 100 UNITS/ML, PEN SQ-INSULIN SCH (09:03)
[2019-01-23] MEDS: DAPTOMYCIN 600 MG in SODIUM CHLORIDE 0.9% 100 ML IVPB SCH (12:12)
[2019-01-23 14:29] VITALS: BP 147/88
[2019-01-23] MEDS: CEFTRIAXONE PMX 2GM/50ML 50 ML IV SCH (16:17)
[2019-01-23 21:07] VITALS: BP 136/72
[2019-01-24 01:56] VITALS: BP 126/63
[2019-01-24 06:28] VITALS: BP 144/89
[2019-01-24] MEDS: CARVEDILOL 6.25 MG TABLET PO SCH ×2 (06:29→17:56)
[2019-01-24] MEDS: INSULIN LISPRO 100 UNITS/ML, PEN SQ-INSULIN SCH ×4 (08:02→21:16)
[2019-01-24] MEDS: INSULIN GLARGINE 100 UNITS/ML, PEN SQ-INSULIN SCH ×3 (08:02→21:00)
[2019-01-24] MEDS: SODIUM CHLORIDE FLUSH 10ML SYR IVF SCH ×2 (08:02→21:01)
[2019-01-24] MEDS: DAPTOMYCIN 600 MG in SODIUM CHLORIDE 0.9% 100 ML IVPB SCH (12:10)
[2019-01-24 12:25] VITALS: BP 138/88
[2019-01-24] MEDS: CEFTRIAXONE PMX 2GM/50ML 50 ML IV SCH (16:16)
[2019-01-24 17:55] VITALS: BP 141/83
[2019-01-24 19:52] VITALS: BP 152/91
[2019-01-25 03:09] VITALS: BP 133/88
[2019-01-25] MEDS: CARVEDILOL 6.25 MG TABLET PO SCH ×2 (06:41→17:40)
[2019-01-25] MEDS: INSULIN LISPRO 100 UNITS/ML, PEN SQ-INSULIN SCH ×4 (06:41→22:14)
[2019-01-25 07:06] VITALS: BP 126/85
[2019-01-25] MEDS: INSULIN GLARGINE 100 UNITS/ML, PEN SQ-INSULIN SCH ×2 (09:10→22:15)
[2019-01-25] MEDS: SODIUM CHLORIDE FLUSH 10ML SYR IVF SCH ×2 (09:10→22:15)
[2019-01-25] MEDS: DAPTOMYCIN 600 MG in SODIUM CHLORIDE 0.9% 100 ML IVPB SCH (12:33)
[2019-01-25 12:47] VITALS: BP 124/87
[2019-01-25 13:39] LABS: BASOPHILS % (AUTO) 1 % (0-1); EOSINOPHILS % (AUTO) 4 % (1-7); LYMPHOCYTES % (AUTO) 23 % (22-44); MEAN CORPUSCULAR HEMOGLOBIN 29.4 pg (27.5-34.5); MEAN CORPUSCULAR HGB CONC 34.1 g/dL (33.2-36.2); MEAN CORPUSCULAR VOLUME 86.3 fL (81-97); MEAN PLATELET VOLUME 7.1 fL (7.4-10.4); MONOCYTES % (AUTO) 6 % (2-9); NEUTROPHILS % (AUTO) 66 % (42-75); PLATELET COUNT 222 x10^3/uL (130-400); RED BLOOD COUNT 4.74 x10^6/uL (4.38-5.82); RED CELL DISTRIBUTION WIDTH 13.9 % (9.4-14.8)
[2019-01-25 13:40] LABS: BASOPHILS # (AUTO) 0.04 x10^3/uL (0-0.1); EOSINOPHILS # (AUTO) 0.29 x10^3/uL (0-0.4); HCT (SEDRATE) 40.9 % (39.2-51.8); LYMPHOCYTES # (AUTO) 1.71 x10^3/uL (1-3.4); MD NO; MONOCYTES # (AUTO) 0.46 x10^3/uL (0.2-0.8); NEUTROPHILS # (AUTO) 4.93 x10^3/uL (1.8-6.8)
[2019-01-25 13:50] LABS: ALANINE AMINOTRANSFERASE 28 U/L (12-78); ALBUMIN 3.4 g/dL (3.4-5.0); ANION GAP 7 mmol/L (5-15); CALCIUM 8.6 mg/dL (8.5-10.1); CHLORIDE 106 mmol/L (98-107)
[2019-01-25 13:52] LABS: ALKALINE PHOSPHATASE 78 U/L (45-117); BILIRUBIN,TOTAL 0.2 mg/dL (0.2-1.0); CREATINE KINASE, TOTAL 146 U/L (39-308); CREATININE 1.04 mg/dL (0.7-1.3); TOTAL PROTEIN 7.4 g/dL (6.4-8.2)
[2019-01-25] MEDS: CEFTRIAXONE PMX 2GM/50ML 50 ML IV SCH (16:31)
[2019-01-25 17:39] VITALS: BP 144/80
[2019-01-25 19:33] VITALS: BP 168/93
[2019-01-26 01:05] VITALS: BP 145/87
[2019-01-26] MEDS: CARVEDILOL 6.25 MG TABLET PO SCH ×2 (06:18→17:17)
[2019-01-26] MEDS: INSULIN LISPRO 100 UNITS/ML, PEN SQ-INSULIN SCH ×3 (06:18→17:10)
[2019-01-26 07:44] VITALS: BP 115/78
[2019-01-26] MEDS: INSULIN GLARGINE 100 UNITS/ML, PEN SQ-INSULIN SCH ×2 (09:18→17:10)
[2019-01-26] MEDS: SODIUM CHLORIDE FLUSH 10ML SYR IVF SCH ×2 (09:18→22:00)
[2019-01-26] MEDS: DAPTOMYCIN 600 MG in SODIUM CHLORIDE 0.9% 100 ML IVPB SCH (11:45)
[2019-01-26 14:31] VITALS: BP 120/78
[2019-01-26] MEDS: CEFTRIAXONE PMX 2GM/50ML 50 ML IV SCH (16:17)
[2019-01-26] MEDS ORDERED: INSULIN GLARGINE 100 UNITS/ML, PEN SQ-INSULIN SCH ×2 (16:30→21:00)
[2019-01-26 17:17] VITALS: BP 148/78
[2019-01-26 19:54] VITALS: BP 135/76
[2019-01-27 04:25] VITALS: BP 132/76
[2019-01-27] MEDS: CARVEDILOL 6.25 MG TABLET PO SCH ×2 (06:30→17:19)
[2019-01-27] MEDS: INSULIN LISPRO 100 UNITS/ML, PEN SQ-INSULIN SCH ×3 (07:00→16:20)
[2019-01-27 07:52] VITALS: BP 125/81
[2019-01-27] MEDS: INSULIN GLARGINE 100 UNITS/ML, PEN SQ-INSULIN SCH ×2 (08:24→16:35)
[2019-01-27] MEDS: SODIUM CHLORIDE FLUSH 10ML SYR IVF SCH ×2 (08:24→20:09)
[2019-01-27] MEDS: DAPTOMYCIN 600 MG in SODIUM CHLORIDE 0.9% 100 ML IVPB SCH (12:15)
[2019-01-27 13:38] VITALS: BP 135/81
[2019-01-27] MEDS: CEFTRIAXONE PMX 2GM/50ML 50 ML IV SCH (16:12)
[2019-01-27] MEDS ORDERED: INSULIN LISPRO 100 UNITS/ML, PEN SQ-INSULIN ONE (16:30)
[2019-01-27 19:54] VITALS: BP 129/72
[2019-01-28 00:57] VITALS: BP 138/68
[2019-01-28 05:40] VITALS: BP 139/79
[2019-01-28] MEDS: CARVEDILOL 6.25 MG TABLET PO SCH ×2 (05:41→17:07)
[2019-01-28 07:28] VITALS: BP 142/87
[2019-01-28] MEDS: INSULIN LISPRO 100 UNITS/ML, PEN SQ-INSULIN SCH ×3 (07:59→17:08)
[2019-01-28] MEDS ORDERED: INSULIN LISPRO 100 UNITS/ML, PEN SQ-INSULIN ONE (08:00)
[2019-01-28] MEDS: INSULIN GLARGINE 100 UNITS/ML, PEN SQ-INSULIN SCH ×2 (08:07→17:07)
[2019-01-28] MEDS: SODIUM CHLORIDE FLUSH 10ML SYR IVF SCH ×2 (08:08→20:50)
[2019-01-28] MEDS: DAPTOMYCIN 600 MG in SODIUM CHLORIDE 0.9% 100 ML IVPB SCH (12:16)
[2019-01-28 14:22] VITALS: BP 153/89
[2019-01-28] MEDS: CEFTRIAXONE PMX 2GM/50ML 50 ML IV SCH (16:12)
[2019-01-28] MEDS ORDERED: GABA300C PO (16:29)
[2019-01-28] MEDS ORDERED: CARV6.2512 PO ×3 (16:29→16:30)
[2019-01-28] MEDS ORDERED: INSU100I13 SQ-INSULIN (16:29)
[2019-01-28] MEDS ORDERED: INSU100I11 SQ-INSULIN (16:29)
[2019-01-28 20:36] VITALS: BP 159/82
[2019-01-29 02:22] VITALS: BP 142/87
[2019-01-29 06:08] VITALS: BP 123/78
[2019-01-29] MEDS: CARVEDILOL 6.25 MG TABLET PO SCH ×2 (06:09→18:04)
[2019-01-29] MEDS: INSULIN LISPRO 100 UNITS/ML, PEN SQ-INSULIN SCH ×3 (07:45→16:20)
[2019-01-29] MEDS: INSULIN GLARGINE 100 UNITS/ML, PEN SQ-INSULIN SCH ×2 (09:50→16:19)
[2019-01-29] MEDS: SODIUM CHLORIDE FLUSH 10ML SYR IVF SCH (09:50)
[2019-01-29] MEDS: DAPTOMYCIN 600 MG in SODIUM CHLORIDE 0.9% 100 ML IVPB SCH (12:40)
[2019-01-29 14:00] VITALS: BP 142/88
[2019-01-29] MEDS ORDERED: AMPI500C2 PO (14:29)
[2019-01-29] MEDS ORDERED: SULF1TAB24 PO (14:29)
[2019-01-29] MEDS: CEFTRIAXONE PMX 2GM/50ML 50 ML IV SCH (15:15)
== END 2019-01-29 18:30 | disposition home or self-care (01) | DRG 854 ==
LOC: ED 20:45 → EDIP 22:03 → 4NOR 22:29
PROVIDERS: ADMIT Family Medicine; ATTEND Hospitalist
PROC: 0QBL0ZZ Excision of Right Tarsal, Open Approach (ICD-10-PCS; 2018-12-12)
PROC: 0QBL0ZZ Excision of Right Tarsal, Open Approach (ICD-10-PCS; 2018-12-12)
PROC: 0SBH0ZZ Excision of Right Tarsal Joint, Open Approach (ICD-10-PCS; 2018-12-17)
PROC: 0QBL0ZZ Excision of Right Tarsal, Open Approach (ICD-10-PCS; 2018-12-17)
PROC: 0QUL0KZ Supplement Right Tarsal with Nonautologous Tissue Substitute, Open Approach (ICD-10-PCS; 2018-12-17)
PROC: 02HV33Z Insertion of Infusion Device into Superior Vena Cava, Percutaneous Approach (ICD-10-PCS; principal; 2018-12-20)
PROC: B5181ZA Fluoroscopy of Superior Vena Cava using Low Osmolar Contrast, Guidance (ICD-10-PCS; 2018-12-20)
PROC: B548ZZA Ultrasonography of Superior Vena Cava, Guidance (ICD-10-PCS; 2018-12-20)
PROC: 2W1SX6Z Compression of Right Foot using Pressure Dressing (ICD-10-PCS; 2019-01-21)
DX: A41.9 Sepsis, unspecified organism (principal); E44.0 Moderate protein-calorie malnutrition; L03.115 Cellulitis of right lower limb; L02.611 Cutaneous abscess of right foot; M00.9 Pyogenic arthritis, unspecified; N17.9 Acute kidney failure, unspecified; M86.171 Other acute osteomyelitis, right ankle and foot; T81.31XA Disruption of external operation (surgical) wound, not elsewhere classified, initial encounter; Y83.8 Other surgical procedures as the cause of abnormal reaction of the patient, or of later complication, without mention of misadventure at the time of the procedure; Y92.89 Other specified places as the place of occurrence of the external cause; D64.9 Anemia, unspecified; E78.5 Hyperlipidemia, unspecified; I12.9 Hypertensive chronic kidney disease with stage 1 through stage 4 chronic kidney disease, or unspecified chronic kidney disease; L97.519 Non-pressure chronic ulcer of other part of right foot with unspecified severity; N18.2 Chronic kidney disease, stage 2 (mild); E11.65 Type 2 diabetes mellitus with hyperglycemia; E11.621 Type 2 diabetes mellitus with foot ulcer; E11.40 Type 2 diabetes mellitus with diabetic neuropathy, unspecified; M25.474 Effusion, right foot; E11.22 Type 2 diabetes mellitus with diabetic chronic kidney disease; E11.69 Type 2 diabetes mellitus with other specified complication; E11.610 Type 2 diabetes mellitus with diabetic neuropathic arthropathy; B95.7 Other staphylococcus as the cause of diseases classified elsewhere; E11.21 Type 2 diabetes mellitus with diabetic nephropathy; E11.649 Type 2 diabetes mellitus with hypoglycemia without coma; Z79.899 Other long term (current) drug therapy; Z79.4 Long term (current) use of insulin; Z80.0 Family history of malignant neoplasm of digestive organs; Z68.30 Body mass index [BMI] 30.0-30.9, adult; Z83.3 Family history of diabetes mellitus; Z86.14 Personal history of Methicillin resistant Staphylococcus aureus infection; Z89.422 Acquired absence of other left toe(s)
CPT/HCPCS: 36415; 36573; 71045; 80048; 80053; 80061; 80202; 82040; 82043; 82550; 82947; 82962; 83036; 83605; 83735; 84100; 84145; 85025; 85651; 86140; 86141; 86803; 87070; 87075; 87077; 87176; 87186; 87205; 87324; A9585; G0378; J0295; J0696; J0878; J2250; J2405; J2543; J2704; J3010; J3370; J3480; J7070; C1751; J0330; J1815; J3475; J3590; J7030; J7040; J7050

== ENCOUNTER 2019-02-21 05:22 | Emergency (ER) | payer BC ==
[~2019-02-21] VITALS: Ht 172.7 cm; Wt 95.0 kg
[~2019-02-21 05:22] MED LIST changes: +AMPI500C2 PO; +CARV6.2512 PO; +GABA300C PO; +INSU100I11 SQ-INSULIN; +INSU100I13 SQ-INSULIN; +INSU100I15 SQ; +SULF1TAB24 PO
--- NOTE | 2019-02-21 05:35 | NUR ---
PT BROUGHT STRAIGHT TO ROOM FROM [facility]. PT CONFUSED AND SLUGGISH, WITH DIAPHORESIS. PT REPORTED TO HAVE PMH OF DM BY GIRLFRIEND. UPON ARRIVAL TO ROOM, PT FSBS 22. PT WAS ABLE TO INGEST 16 OUNCES OF ORANGE JUICE. IV ACCESS OBTAINED AND PT WAS GIVEN AN AMP OF D50. PT BECAME AAO X 4 AFTER INTERVENTIONS. PT ATTACHED TO VS MACHINES AND CLINICAL TRIAL SPECIALIST. VS STABLE AT THIS TIME. PT CONVERSING NORMALLY AND ANSWERING QUESTIONS. PT EDUCATED ON ER PROCESS AND POC AND VERBALIZES UNDERSTANDING. CALL LIGHT IS WITHIN REACH AT THIS TIME. AWAITING FURTHER INTERVENTIONS AND ORDERS FROM ERP
[2019-02-21 05:37] VITALS: BP 130/78
[2019-02-21 05:59] LABS: BASOPHILS # (AUTO) 0.04 x10^3/uL (0-0.1); BASOPHILS % (AUTO) 1 % (0-1); EOSINOPHILS # (AUTO) 0.78 x10^3/uL (0-0.4); EOSINOPHILS % (AUTO) 12 % (1-7); LYMPHOCYTES # (AUTO) 2.31 x10^3/uL (1-3.4); LYMPHOCYTES % (AUTO) 36 % (22-44); MD NO; MEAN CORPUSCULAR HEMOGLOBIN 28.6 pg (27.5-34.5); MEAN CORPUSCULAR HGB CONC 33.8 g/dL (33.2-36.2); MEAN CORPUSCULAR VOLUME 84.6 fL (81-97); MEAN PLATELET VOLUME 6.4 fL (7.4-10.4); MONOCYTES # (AUTO) 0.52 x10^3/uL (0.2-0.8); MONOCYTES % (AUTO) 8 % (2-9); NEUTROPHILS # (AUTO) 2.87 x10^3/uL (1.8-6.8); NEUTROPHILS % (AUTO) 44 % (42-75); PLATELET COUNT 326 x10^3/uL (130-400); RED BLOOD COUNT 4.37 x10^6/uL (4.38-5.82); RED CELL DISTRIBUTION WIDTH 13.9 % (9.4-14.8)
[2019-02-21 06:00] LABS: ALBUMIN 3.3 g/dL (3.4-5.0); ANION GAP 5 mmol/L (5-15); CALCIUM 8.5 mg/dL (8.5-10.1); CHLORIDE 108 mmol/L (98-107); CREATININE 0.96 mg/dL (0.7-1.3)
[2019-02-21] MEDS ORDERED: DEXTROSE 50%, 50ML SYRINGE IVPush ONE (06:00)
--- NOTE | 2019-02-21 06:21 | NUR ---
PT GIVEN BREAKFAST SANDWICHES FROM [employer]. PT BLOOD SUGAR RECHECKED AND CHARTED.
--- NOTE | 2019-02-21 06:52 | NUR ---
REPORT OF PT TO BETHANY ABEBE. ALL QUESTIONS ANSWERED
--- NOTE | 2019-02-21 07:02 | NUR ---
Pt resting on gurney connected to NIBP and continous pulse ox. All safety measures in place. Call light within reach. Pt is AOX4. NADN. Will re-check FSBG at 0715. No needs expressed by pt.
--- NOTE | 2019-02-21 07:31 | NUR ---
Patient given discharge instructions and they have confirmed that they understand the instructions. Patient ambulatory with steady gait with personal cruthces. Pt left with discharge paperwork and all personal belongings.
== END 2019-02-21 07:34 | disposition home or self-care (01) ==
LOC: ED 06:03
DX: E10.649 Type 1 diabetes mellitus with hypoglycemia without coma (principal); E10.42 Type 1 diabetes mellitus with diabetic polyneuropathy; Z79.4 Long term (current) use of insulin
CPT/HCPCS: 36415; 80048; 82040; 82962; 85025; 96374

== ENCOUNTER 2019-02-22 08:46 | Outpatient (CLI) | payer BC | END 2019-02-22 23:59 | disposition home or self-care (01) | LOC: WOUND 08:46 | PROVIDERS: ATTEND Internal Medicine | DX: T81.89XD Other complications of procedures, not elsewhere classified, subsequent encounter (principal); E11.621 Type 2 diabetes mellitus with foot ulcer; L97.512 Non-pressure chronic ulcer of other part of right foot with fat layer exposed; M14.671 Charcot's joint, right ankle and foot; M14.672 Charcot's joint, left ankle and foot; E11.69 Type 2 diabetes mellitus with other specified complication; M86.071 Acute hematogenous osteomyelitis, right ankle and foot; M86.171 Other acute osteomyelitis, right ankle and foot; E11.42 Type 2 diabetes mellitus with diabetic polyneuropathy; E11.649 Type 2 diabetes mellitus with hypoglycemia without coma; E11.65 Type 2 diabetes mellitus with hyperglycemia; E11.21 Type 2 diabetes mellitus with diabetic nephropathy; I13.10 Hypertensive heart and chronic kidney disease without heart failure, with stage 1 through stage 4 chronic kidney disease, or unspecified chronic kidney disease; E11.22 Type 2 diabetes mellitus with diabetic chronic kidney disease; N18.2 Chronic kidney disease, stage 2 (mild); L84 Corns and callosities; M00.9 Pyogenic arthritis, unspecified; E78.5 Hyperlipidemia, unspecified; Z87.891 Personal history of nicotine dependence; Z79.4 Long term (current) use of insulin; Z89.422 Acquired absence of other left toe(s); Z79.899 Other long term (current) drug therapy; Y83.8 Other surgical procedures as the cause of abnormal reaction of the patient, or of later complication, without mention of misadventure at the time of the procedure | CPT/HCPCS: 11042; 99215 ==

== ENCOUNTER 2019-02-28 15:31 | Inpatient (IN) | payer BC ==
[~2019-02-28] VITALS: Ht 172.7 cm; Wt 91.1 kg
[2019-02-28] MEDS ORDERED: ACETAMINOPHEN 500 MG TABLET ONE (16:10)
--- NOTE | 2019-02-28 16:24 | NUR ---
Pt reports fever, chills starting today. Pt had surgery to left foot in november, wound red and warm to touch, right foot swollen as well.
[2019-02-28] MEDS ORDERED: ACETAMINOPHEN 325 MG TABLET PO ONE (16:30)
[2019-02-28 16:48] LABS: PH, VENOUS 7.407 pH (7.320-7.420)
[2019-02-28 16:48] LABS: BASOPHILS # (AUTO) 0.01 x10^3/uL (0-0.1); BASOPHILS % (AUTO) 0 % (0-1); EOSINOPHILS # (AUTO) 0.12 x10^3/uL (0-0.4); EOSINOPHILS % (AUTO) 2 % (1-7); LYMPHOCYTES # (AUTO) 0.54 x10^3/uL (1-3.4); LYMPHOCYTES % (AUTO) 8 % (22-44); MD NO; MEAN CORPUSCULAR HEMOGLOBIN 28.3 pg (27.5-34.5); MEAN CORPUSCULAR HGB CONC 33.9 g/dL (33.2-36.2); MEAN CORPUSCULAR VOLUME 83.5 fL (81-97); MEAN PLATELET VOLUME 6.6 fL (7.4-10.4); MONOCYTES # (AUTO) 0.01 x10^3/uL (0.2-0.8); MONOCYTES % (AUTO) 0 % (2-9); NEUTROPHILS # (AUTO) 5.93 x10^3/uL (1.8-6.8); NEUTROPHILS % (AUTO) 90 % (42-75); PLATELET COUNT 309 x10^3/uL (130-400); RED BLOOD COUNT 4.86 x10^6/uL (4.38-5.82); RED CELL DISTRIBUTION WIDTH 13.6 % (9.4-14.8)
[2019-02-28 16:50] LABS: FIO2 ROOM AIR %
[2019-02-28 16:59] LABS: ALANINE AMINOTRANSFERASE 18 U/L (12-78); ALBUMIN 3.4 g/dL (3.4-5.0); ANION GAP 8 mmol/L (5-15); CALCIUM 8.5 mg/dL (8.5-10.1); CHLORIDE 100 mmol/L (98-107); CREATININE 1.59 mg/dL (0.7-1.3)
[2019-02-28 17:01] LABS: ALKALINE PHOSPHATASE 121 U/L (45-117); BILIRUBIN,TOTAL 0.5 mg/dL (0.2-1.0); TOTAL PROTEIN 8.2 g/dL (6.4-8.2)
[2019-02-28 17:29] LABS: MICROSCOPIC NOT IND
[2019-02-28 17:38] LABS: CULTURE INDICATED? NO
[2019-02-28 17:48] LABS: ACETONE, SERUM Small (20mg/dL) mg/dL (Negative)
[2019-02-28] MEDS ORDERED: CEFTRIAXONE PMX 1GM/50ML 50 ML ONE (18:06)
[2019-02-28] MEDS ORDERED: SODIUM CHLORIDE FLUSH 10ML SYR IVF PRN (18:30)
[2019-02-28] MEDS ORDERED: CEFTRIAXONE PMX 1GM/50ML 50 ML IVPB ONE (18:30)
--- NOTE | 2019-02-28 18:31 | NUR ---
Report to [facility], pt requesting ER MD recheck prior to transport upstairs, notified
--- NOTE | 2019-02-28 18:32 | NUR ---
Late note: Per ER MD no need for hourly fingerstick, pts FSBS to be recheck after fluids
[2019-02-28 19:30] VITALS: BP 113/67
[2019-02-28] MEDS ORDERED: OXYcodone IR 5MG TABLET PO PRN (20:30)
[2019-02-28] MEDS ORDERED: POLYETHYLENE GLYCOL 17 GM PACKET PO PRN (20:30)
[2019-02-28] MEDS ORDERED: SODIUM CHLORIDE 0.9% 100 ML IV SCH (21:00)
[2019-02-28 21:10] LABS: HEMOGLOBIN A1C 8.4 % (4.2-6.3)
[2019-02-28] MEDS: SODIUM CHLORIDE 0.9% 1,000 ML IV SCH (22:01)
[2019-02-28] MEDS: HEPARIN 5,000 UNITS/ML, 1ML SQ SCH (22:02)
[2019-02-28] MEDS: GABAPENTIN 300 MG CAPSULE PO SCH (22:02)
[2019-02-28] MEDS: PIPERACILLIN/TAZO/PMX 3.375GM 50 ML IV SCH (22:03)
[2019-02-28] MEDS: ACETAMINOPHEN 325 MG TABLET PO PRN (22:27)
[2019-02-28] MEDS: INSULIN LISPRO 100 UNITS/ML, PEN SQ-INSULIN SCH (22:33)
[2019-02-28] MEDS: LINEZOLID PMX 600MG/300ML 300 ML IV SCH (22:43)
[2019-03-01 01:15] VITALS: BP 110/72
[2019-03-01] MEDS: ACETAMINOPHEN 325 MG TABLET PO PRN (03:11)
[2019-03-01] MEDS: HEPARIN 5,000 UNITS/ML, 1ML SQ SCH ×3 (05:38→22:01)
[2019-03-01] MEDS: PIPERACILLIN/TAZO/PMX 3.375GM 50 ML IV SCH ×3 (05:38→22:01)
[2019-03-01] MEDS: CARVEDILOL 6.25 MG TABLET PO SCH ×2 (05:38→16:49)
[2019-03-01 06:05] LABS: BASOPHILS # (AUTO) 0.02 x10^3/uL (0-0.1); BASOPHILS % (AUTO) 0 % (0-1); EOSINOPHILS % (AUTO) 0 % (1-7); LYMPHOCYTES # (AUTO) 0.43 x10^3/uL (1-3.4); LYMPHOCYTES % (AUTO) 6 % (22-44); MD NO; MEAN CORPUSCULAR HEMOGLOBIN 28.2 pg (27.5-34.5); MEAN CORPUSCULAR HGB CONC 34.1 g/dL (33.2-36.2); MEAN CORPUSCULAR VOLUME 82.7 fL (81-97); MEAN PLATELET VOLUME 6.3 fL (7.4-10.4); MONOCYTES # (AUTO) 0.25 x10^3/uL (0.2-0.8); MONOCYTES % (AUTO) 4 % (2-9); NEUTROPHILS # (AUTO) 6.17 x10^3/uL (1.8-6.8); NEUTROPHILS % (AUTO) 90 % (42-75); PLATELET COUNT 236 x10^3/uL (130-400); RED BLOOD COUNT 4.34 x10^6/uL (4.38-5.82); RED CELL DISTRIBUTION WIDTH 13.7 % (9.4-14.8)
[2019-03-01 06:08] LABS: CHLORIDE 102 mmol/L (98-107)
[2019-03-01 06:15] LABS: ALANINE AMINOTRANSFERASE 14 U/L (12-78); ALBUMIN 2.7 g/dL (3.4-5.0); ALKALINE PHOSPHATASE 78 U/L (45-117); ANION GAP 9 mmol/L (5-15); BILIRUBIN,TOTAL 0.6 mg/dL (0.2-1.0); CALCIUM 8.1 mg/dL (8.5-10.1); CREATININE 1.11 mg/dL (0.7-1.3); TOTAL PROTEIN 6.8 g/dL (6.4-8.2)
[2019-03-01 08:00] VITALS: BP 141/75
[2019-03-01] MEDS: SODIUM CHLORIDE 0.9% 1,000 ML IV SCH ×2 (08:00→20:41)
[2019-03-01] MEDS: INSULIN LISPRO 100 UNITS/ML, PEN SQ-INSULIN SCH ×4 (08:30→20:53)
[2019-03-01] MEDS: GABAPENTIN 300 MG CAPSULE PO SCH ×3 (09:00→20:40)
[2019-03-01] MEDS ORDERED: INSULIN GLARGINE 100 UNITS/ML, PEN SQ-INSULIN SCH (09:00)
[2019-03-01] MEDS: LINEZOLID PMX 600MG/300ML 300 ML IV SCH ×2 (12:59→22:49)
[2019-03-01 14:00] VITALS: BP 124/68
[2019-03-01] MEDS ORDERED: GADOBUTROL 7.5 MMOL/7.5 ML PFS ONE (15:38)
[2019-03-01 16:38] LABS: INTERNATIONAL NORMALIZED RATIO 1.09 (0.93-1.1); PROTHROMBIN TIME 11.4 Seconds (9.6-11.5)
[2019-03-01] MEDS: INSULIN GLARGINE 100 UNITS/ML, PEN SQ-INSULIN SCH (16:51)
[2019-03-01 19:16] VITALS: BP 116/66
[2019-03-02 02:52] VITALS: BP 154/89
[2019-03-02] MEDS: HEPARIN 5,000 UNITS/ML, 1ML SQ SCH ×3 (05:30→21:28)
[2019-03-02 05:33] VITALS: BP 160/92
[2019-03-02] MEDS: PIPERACILLIN/TAZO/PMX 3.375GM 50 ML IV SCH ×3 (05:35→22:14)
[2019-03-02] MEDS: CARVEDILOL 6.25 MG TABLET PO SCH (05:35)
[2019-03-02 05:46] LABS: BASOPHILS # (AUTO) 0.02 x10^3/uL (0-0.1); BASOPHILS % (AUTO) 0 % (0-1); CHLORIDE 103 mmol/L (98-107); EOSINOPHILS # (AUTO) 0.18 x10^3/uL (0-0.4); EOSINOPHILS % (AUTO) 5 % (1-7); LYMPHOCYTES # (AUTO) 0.88 x10^3/uL (1-3.4); LYMPHOCYTES % (AUTO) 22 % (22-44); MD NO; MEAN CORPUSCULAR HEMOGLOBIN 28.3 pg (27.5-34.5); MEAN CORPUSCULAR VOLUME 83.2 fL (81-97); MEAN PLATELET VOLUME 6.4 fL (7.4-10.4); MONOCYTES # (AUTO) 0.26 x10^3/uL (0.2-0.8); MONOCYTES % (AUTO) 7 % (2-9); NEUTROPHILS # (AUTO) 2.65 x10^3/uL (1.8-6.8); NEUTROPHILS % (AUTO) 67 % (42-75); PLATELET COUNT 224 x10^3/uL (130-400); RED BLOOD COUNT 4.19 x10^6/uL (4.38-5.82); RED CELL DISTRIBUTION WIDTH 13.9 % (9.4-14.8)
[2019-03-02 05:57] LABS: ANION GAP 7 mmol/L (5-15); CREATININE 1.08 mg/dL (0.7-1.3)
[2019-03-02] MEDS: SODIUM CHLORIDE 0.9% 1,000 ML IV SCH ×2 (07:00→21:00)
[2019-03-02 07:38] VITALS: BP 144/84
[2019-03-02] MEDS: metFORMIN 850 MG TABLET PO SCH ×2 (08:00→18:02)
[2019-03-02] MEDS ORDERED: OXYcodone IR 5MG TABLET PO PRN (08:30)
[2019-03-02] MEDS: GABAPENTIN 300 MG CAPSULE PO SCH ×3 (08:45→21:00)
[2019-03-02] MEDS: INSULIN LISPRO 100 UNITS/ML, PEN SQ-INSULIN SCH ×4 (09:02→22:14)
[2019-03-02] MEDS: INSULIN GLARGINE 100 UNITS/ML, PEN SQ-INSULIN SCH ×2 (09:02→18:01)
[2019-03-02] MEDS: ACETAMINOPHEN 325 MG TABLET PO PRN ×3 (09:14→23:13)
[2019-03-02] MEDS: LINEZOLID PMX 600MG/300ML 300 ML IV SCH ×2 (11:54→23:11)
[2019-03-02 12:32] VITALS: BP 155/92
[2019-03-02] MEDS: CARVEDILOL 3.125 MG TABLET PO SCH (18:02)
[2019-03-02 18:50] VITALS: BP 143/82
[2019-03-03 01:23] VITALS: BP 158/82
[2019-03-03 05:27] VITALS: BP 132/79
[2019-03-03] MEDS: CARVEDILOL 3.125 MG TABLET PO SCH (05:29)
[2019-03-03] MEDS: HEPARIN 5,000 UNITS/ML, 1ML SQ SCH ×3 (05:30→21:07)
[2019-03-03] MEDS: PIPERACILLIN/TAZO/PMX 3.375GM 50 ML IV SCH ×3 (05:30→21:14)
[2019-03-03] MEDS: ACETAMINOPHEN 325 MG TABLET PO PRN ×2 (05:34→14:52)
[2019-03-03 06:20] LABS: C-REACTIVE PROTEIN, QUANT 7.6 mg/dL (0.02-0.49)
[2019-03-03 07:30] VITALS: BP 141/87
[2019-03-03] MEDS ORDERED: metFORMIN 850 MG TABLET PO SCH (08:00)
[2019-03-03] MEDS: GABAPENTIN 300 MG CAPSULE PO SCH ×3 (09:00→21:00)
[2019-03-03] MEDS: metFORMIN 500 MG TABLET PO SCH ×2 (09:31→17:38)
[2019-03-03] MEDS: INSULIN LISPRO 100 UNITS/ML, PEN SQ-INSULIN SCH ×4 (09:32→21:23)
[2019-03-03] MEDS: INSULIN GLARGINE 100 UNITS/ML, PEN SQ-INSULIN SCH ×2 (09:33→17:00)
[2019-03-03] MEDS: SODIUM CHLORIDE 0.9% 1,000 ML IV SCH (09:37)
[2019-03-03] MEDS: LINEZOLID PMX 600MG/300ML 300 ML IV SCH ×2 (12:17→23:02)
[2019-03-03 14:42] VITALS: BP 152/91
[2019-03-03] MEDS: CARVEDILOL 6.25 MG TABLET PO SCH (17:58)
[2019-03-03 19:10] VITALS: BP 134/80
[2019-03-03] MEDS ORDERED: MEPERIDINE/PF 25MG/0.5ML IVPush PRN (19:30)
[2019-03-03] MEDS ORDERED: OXYcodone 5 MG/5 ML ORAL.SOL UDC PO PRN (19:30)
[2019-03-03] MEDS ORDERED: PROMETHAZINE 25 MG/ML, 1ML IM PRN ×2 (19:30)
[2019-03-03] MEDS ORDERED: PROMETHAZINE 25 MG/ML, 1ML IV PRN (19:30)
[2019-03-03] MEDS ORDERED: ONDANSETRON ODT 8 MG PO PRN (19:30)
[2019-03-03] MEDS ORDERED: LABETALOL 5 MG/ML SYRINGE IV PRN (19:30)
[2019-03-03] MEDS ORDERED: ONDANSETRON 2MG/ML, 2ML IV PRN (19:30)
[2019-03-03] MEDS ORDERED: PROMETHAZINE 25 MG SUPP PR PRN (19:30)
[2019-03-03] MEDS ORDERED: PROMETHAZINE 12.5 MG SUPP PR PRN (19:30)
[2019-03-03] MEDS ORDERED: ACETAMINOPHEN 325 MG TABLET PO PRN (19:30)
[2019-03-03] MEDS ORDERED: HYDROmorphone 2 MG/ML, 1ML IVPush PRN (19:30)
[2019-03-03] MEDS ORDERED: MORPHINE SULFATE 4 MG/ML, 1ML IVPush PRN (19:30)
[2019-03-03] MEDS ORDERED: FENTANYL PF 100 MCG/2ML IV PRN (19:30)
[2019-03-03] MEDS ORDERED: hydrALAzine 20 MG/ML, 1ML IV PRN (19:30)
[2019-03-03] MEDS ORDERED: PROPOFOL 10 MG/ML, 20ML ONE (19:32)
[2019-03-04] MEDS: ACETAMINOPHEN 325 MG TABLET PO PRN (00:14)
[2019-03-04 01:49] VITALS: BP 164/91
[2019-03-04] MEDS: HEPARIN 5,000 UNITS/ML, 1ML SQ SCH ×2 (05:24→15:58)
[2019-03-04] MEDS: PIPERACILLIN/TAZO/PMX 3.375GM 50 ML IV SCH ×2 (05:24→16:00)
[2019-03-04 07:27] VITALS: BP 170/104
[2019-03-04] MEDS: metFORMIN 500 MG TABLET PO SCH ×2 (07:30→18:02)
[2019-03-04] MEDS: CARVEDILOL 6.25 MG TABLET PO SCH (07:31)
[2019-03-04] MEDS: GABAPENTIN 300 MG CAPSULE PO SCH ×3 (07:56→20:35)
[2019-03-04] MEDS: INSULIN LISPRO 100 UNITS/ML, PEN SQ-INSULIN SCH ×4 (08:40→20:48)
[2019-03-04] MEDS: INSULIN GLARGINE 100 UNITS/ML, PEN SQ-INSULIN SCH ×2 (08:48→18:03)
[2019-03-04] MEDS: LINEZOLID PMX 600MG/300ML 300 ML IV SCH ×2 (12:40→23:00)
[2019-03-04] MEDS: SODIUM CHLORIDE 0.9% 1,000 ML IV SCH (12:42)
[2019-03-04 14:34] VITALS: BP 142/80
[2019-03-04] MEDS: CARVEDILOL 12.5 MG TABLET PO SCH (18:03)
[2019-03-04 20:07] VITALS: BP 145/84
[2019-03-05] MEDS: PIPERACILLIN/TAZO/PMX 3.375GM 50 ML IV SCH ×3 (00:55→18:34)
[2019-03-05] MEDS: HEPARIN 5,000 UNITS/ML, 1ML SQ SCH ×4 (00:58→22:54)
[2019-03-05 01:31] VITALS: BP 150/89
[2019-03-05] MEDS: SODIUM CHLORIDE 0.9% 1,000 ML IV SCH (06:00)
[2019-03-05] MEDS: CARVEDILOL 12.5 MG TABLET PO SCH ×2 (06:28→17:18)
[2019-03-05] MEDS: INSULIN LISPRO 100 UNITS/ML, PEN SQ-INSULIN SCH ×4 (07:00→21:07)
[2019-03-05] MEDS: metFORMIN 500 MG TABLET PO SCH ×2 (07:51→17:16)
[2019-03-05] MEDS: INSULIN GLARGINE 100 UNITS/ML, PEN SQ-INSULIN SCH ×2 (07:52→17:17)
[2019-03-05] MEDS: GABAPENTIN 300 MG CAPSULE PO SCH ×3 (07:52→20:52)
[2019-03-05 08:00] VITALS: BP 168/92
[2019-03-05] MEDS: LINEZOLID PMX 600MG/300ML 300 ML IV SCH ×2 (11:21→22:53)
[2019-03-05 14:00] VITALS: BP 132/74
[2019-03-05] MEDS: ISOSORBIDE DINITRATE 10 MG TABLET PO SCH ×2 (17:16→20:58)
[2019-03-05 19:19] VITALS: BP 136/76
[2019-03-05] MEDS ORDERED: SODIUM CHLORIDE 0.9% 1,000 ML IV SCH (21:00)
[2019-03-06 00:04] VITALS: BP 130/74
[2019-03-06] MEDS: PIPERACILLIN/TAZO/PMX 3.375GM 50 ML IV SCH ×3 (03:00→18:56)
[2019-03-06 08:00] VITALS: BP 130/75
[2019-03-06] MEDS: GABAPENTIN 300 MG CAPSULE PO SCH ×3 (09:00→18:11)
[2019-03-06] MEDS: HEPARIN 5,000 UNITS/ML, 1ML SQ SCH ×2 (10:16→18:18)
[2019-03-06] MEDS: metFORMIN 500 MG TABLET PO SCH ×2 (10:17→18:10)
[2019-03-06] MEDS: ISOSORBIDE DINITRATE 10 MG TABLET PO SCH ×3 (10:17→23:58)
[2019-03-06] MEDS: INSULIN GLARGINE 100 UNITS/ML, PEN SQ-INSULIN SCH ×3 (10:18→18:18)
[2019-03-06] MEDS: INSULIN LISPRO 100 UNITS/ML, PEN SQ-INSULIN SCH ×4 (10:19→21:00)
[2019-03-06] MEDS: CARVEDILOL 12.5 MG TABLET PO SCH ×2 (10:22→18:10)
[2019-03-06] MEDS: LINEZOLID PMX 600MG/300ML 300 ML IV SCH ×2 (11:58→23:57)
[2019-03-06 13:39] VITALS: BP 144/75
[2019-03-06 19:30] VITALS: BP 116/65
[2019-03-07] MEDS: HEPARIN 5,000 UNITS/ML, 1ML SQ SCH ×3 (00:04→17:06)
[2019-03-07 00:05] VITALS: BP 126/74
[2019-03-07] MEDS: PIPERACILLIN/TAZO/PMX 3.375GM 50 ML IV SCH ×3 (02:57→19:53)
[2019-03-07 07:18] VITALS: BP 131/79
[2019-03-07] MEDS: INSULIN LISPRO 100 UNITS/ML, PEN SQ-INSULIN SCH ×4 (07:25→20:47)
[2019-03-07] MEDS: metFORMIN 500 MG TABLET PO SCH ×2 (07:52→18:00)
[2019-03-07] MEDS: CARVEDILOL 12.5 MG TABLET PO SCH ×2 (08:28→17:06)
[2019-03-07] MEDS: INSULIN GLARGINE 100 UNITS/ML, PEN SQ-INSULIN SCH ×2 (08:28→17:59)
[2019-03-07] MEDS: ISOSORBIDE DINITRATE 10 MG TABLET PO SCH ×3 (08:28→20:46)
[2019-03-07] MEDS: GABAPENTIN 300 MG CAPSULE PO SCH ×3 (08:28→20:46)
[2019-03-07] MEDS: LINEZOLID PMX 600MG/300ML 300 ML IV SCH (12:32)
[2019-03-07 17:00] VITALS: BP 166/97
[2019-03-07 21:19] VITALS: BP 134/77
[2019-03-08] MEDS: LINEZOLID PMX 600MG/300ML 300 ML IV SCH ×2 (00:46→12:46)
[2019-03-08] MEDS: HEPARIN 5,000 UNITS/ML, 1ML SQ SCH ×3 (00:46→16:14)
[2019-03-08 01:47] VITALS: BP 118/70
[2019-03-08] MEDS: PIPERACILLIN/TAZO/PMX 3.375GM 50 ML IV SCH ×3 (04:04→20:22)
[2019-03-08 04:47] LABS: HCT (SEDRATE) 34.6 % (39.2-51.8)
[2019-03-08] MEDS: CARVEDILOL 12.5 MG TABLET PO SCH ×2 (06:25→17:18)
[2019-03-08] MEDS: INSULIN LISPRO 100 UNITS/ML, PEN SQ-INSULIN SCH ×4 (07:00→20:40)
[2019-03-08] MEDS: INSULIN GLARGINE 100 UNITS/ML, PEN SQ-INSULIN SCH ×2 (08:31→16:33)
[2019-03-08] MEDS: metFORMIN 500 MG TABLET PO SCH ×2 (08:32→16:13)
[2019-03-08] MEDS: ISOSORBIDE DINITRATE 10 MG TABLET PO SCH ×3 (08:33→20:22)
[2019-03-08] MEDS: GABAPENTIN 300 MG CAPSULE PO SCH ×4 (09:00→21:00)
[2019-03-08 13:51] VITALS: BP 133/68
[2019-03-08 13:53] VITALS: BP 133/74
[2019-03-08 19:31] VITALS: BP 136/76
[2019-03-09] MEDS: LINEZOLID PMX 600MG/300ML 300 ML IV SCH ×2 (00:34→13:00)
[2019-03-09] MEDS: HEPARIN 5,000 UNITS/ML, 1ML SQ SCH ×3 (00:34→17:13)
[2019-03-09 02:20] VITALS: BP 119/69
[2019-03-09] MEDS: PIPERACILLIN/TAZO/PMX 3.375GM 50 ML IV SCH ×3 (04:08→20:52)
[2019-03-09] MEDS: CARVEDILOL 12.5 MG TABLET PO SCH ×2 (05:38→17:14)
[2019-03-09] MEDS: ACETAMINOPHEN 325 MG TABLET PO PRN (05:43)
[2019-03-09] MEDS: INSULIN LISPRO 100 UNITS/ML, PEN SQ-INSULIN SCH ×4 (07:00→20:54)
[2019-03-09 08:35] VITALS: BP 127/79
[2019-03-09] MEDS: GABAPENTIN 300 MG CAPSULE PO SCH ×3 (09:00→20:52)
[2019-03-09] MEDS: LACTOBACILLUS CHEW TABLET PO SCH ×3 (09:35→20:53)
[2019-03-09] MEDS: ISOSORBIDE DINITRATE 10 MG TABLET PO SCH ×3 (09:35→20:53)
[2019-03-09] MEDS: metFORMIN 500 MG TABLET PO SCH ×2 (09:39→17:14)
[2019-03-09] MEDS: INSULIN GLARGINE 100 UNITS/ML, PEN SQ-INSULIN SCH ×2 (09:39→17:14)
[2019-03-09 15:17] VITALS: BP 134/76
[2019-03-09 19:38] VITALS: BP 124/74
[2019-03-10] MEDS: HEPARIN 5,000 UNITS/ML, 1ML SQ SCH ×3 (00:30→16:39)
[2019-03-10] MEDS: LINEZOLID PMX 600MG/300ML 300 ML IV SCH ×2 (00:30→12:45)
[2019-03-10 00:35] VITALS: BP 132/74
[2019-03-10] MEDS: PIPERACILLIN/TAZO/PMX 3.375GM 50 ML IV SCH ×2 (05:14→12:49)
[2019-03-10] MEDS: CARVEDILOL 12.5 MG TABLET PO SCH ×2 (05:14→18:36)
[2019-03-10] MEDS: INSULIN LISPRO 100 UNITS/ML, PEN SQ-INSULIN SCH ×4 (07:00→21:07)
[2019-03-10 08:32] VITALS: BP 111/68
[2019-03-10] MEDS: LACTOBACILLUS CHEW TABLET PO SCH ×3 (08:33→21:08)
[2019-03-10] MEDS: ISOSORBIDE DINITRATE 10 MG TABLET PO SCH ×3 (08:34→21:08)
[2019-03-10] MEDS: metFORMIN 500 MG TABLET PO SCH ×2 (08:34→16:38)
[2019-03-10] MEDS: GABAPENTIN 300 MG CAPSULE PO SCH ×3 (08:35→21:07)
[2019-03-10] MEDS: INSULIN GLARGINE 100 UNITS/ML, PEN SQ-INSULIN SCH (10:13)
[2019-03-10 14:29] VITALS: BP 108/67
[2019-03-10] MEDS ORDERED: INSULIN GLARGINE 100 UNITS/ML, PEN SQ-INSULIN SCH (17:00)
[2019-03-10 20:38] VITALS: BP 160/83
[2019-03-10] MEDS: AMPICILLIN/SULBACTAM 3 GM in SODIUM CHLORIDE 0.9% 100 ML IV SCH (21:08)
[2019-03-11] MEDS: HEPARIN 5,000 UNITS/ML, 1ML SQ SCH ×3 (01:00→17:20)
[2019-03-11 01:18] VITALS: BP 116/68
[2019-03-11] MEDS: AMPICILLIN/SULBACTAM 3 GM in SODIUM CHLORIDE 0.9% 100 ML IV SCH ×2 (05:53→15:15)
[2019-03-11] MEDS: CARVEDILOL 12.5 MG TABLET PO SCH ×2 (05:53→17:09)
[2019-03-11] MEDS ORDERED: DEXTROSE 4 GM TAB.CHEW PO PRN (08:00)
[2019-03-11] MEDS ORDERED: GLUCAGON 1 MG IM PRN (08:00)
[2019-03-11] MEDS ORDERED: DEXTROSE 50%, 50ML SYRINGE IVPush PRN (08:00)
[2019-03-11] MEDS: INSULIN LISPRO 100 UNITS/ML, PEN SQ-INSULIN SCH ×3 (08:03→17:35)
[2019-03-11] MEDS: metFORMIN 500 MG TABLET PO SCH ×2 (08:03→17:09)
[2019-03-11 08:18] VITALS: BP 159/70
[2019-03-11] MEDS: INSULIN GLARGINE 100 UNITS/ML, PEN SQ-INSULIN SCH ×2 (09:00→17:32)
[2019-03-11] MEDS ORDERED: INSULIN GLARGINE 100 UNITS/ML, PEN SQ-INSULIN SCH (09:00)
[2019-03-11] MEDS ORDERED: SODIUM CHLORIDE FLUSH 10ML SYR IVF SCH (09:00)
[2019-03-11] MEDS: LACTOBACILLUS CHEW TABLET PO SCH ×2 (11:03→17:08)
[2019-03-11] MEDS: GABAPENTIN 300 MG CAPSULE PO SCH ×2 (11:04→17:20)
[2019-03-11] MEDS: ISOSORBIDE DINITRATE 10 MG TABLET PO SCH ×2 (11:05→17:08)
[2019-03-11 14:30] VITALS: BP 136/75
[2019-03-11] MEDS ORDERED: ACET325T14 PO (14:55)
[2019-03-11] MEDS ORDERED: METF850T10 PO (14:55)
[2019-03-11] MEDS ORDERED: HYDR-3341 PO (14:55)
[2019-03-11] MEDS ORDERED: CARV6.2512 PO (14:55)
[2019-03-11] MEDS ORDERED: INSU100I13 SQ-INSULIN (14:55)
[2019-03-11] MEDS ORDERED: ISOS10TA2 PO (14:55)
== END 2019-03-11 18:06 | disposition home or self-care (01) | DRG 982 ==
LOC: ED 16:48 → EDIP 18:12 → 3NE 19:27
PROVIDERS: ADMIT Family Medicine; ATTEND Family Medicine
PROC: 0KBV0ZZ Excision of Right Foot Muscle, Open Approach (ICD-10-PCS; principal; 2019-03-04)
PROC: 02HV33Z Insertion of Infusion Device into Superior Vena Cava, Percutaneous Approach (ICD-10-PCS; 2019-03-05)
PROC: B5181ZA Fluoroscopy of Superior Vena Cava using Low Osmolar Contrast, Guidance (ICD-10-PCS; 2019-03-05)
PROC: B548ZZA Ultrasonography of Superior Vena Cava, Guidance (ICD-10-PCS; 2019-03-05)
DX: E11.69 Type 2 diabetes mellitus with other specified complication (principal); M00.9 Pyogenic arthritis, unspecified; L02.611 Cutaneous abscess of right foot; M86.8X7 Other osteomyelitis, ankle and foot; L03.115 Cellulitis of right lower limb; M84.478A Pathological fracture, left toe(s), initial encounter for fracture; E11.610 Type 2 diabetes mellitus with diabetic neuropathic arthropathy; D64.9 Anemia, unspecified; E11.22 Type 2 diabetes mellitus with diabetic chronic kidney disease; E11.21 Type 2 diabetes mellitus with diabetic nephropathy; E11.621 Type 2 diabetes mellitus with foot ulcer; E11.65 Type 2 diabetes mellitus with hyperglycemia; E11.649 Type 2 diabetes mellitus with hypoglycemia without coma; E66.9 Obesity, unspecified; M89.571 Osteolysis, right ankle and foot; E78.5 Hyperlipidemia, unspecified; E86.0 Dehydration; I12.9 Hypertensive chronic kidney disease with stage 1 through stage 4 chronic kidney disease, or unspecified chronic kidney disease; L97.519 Non-pressure chronic ulcer of other part of right foot with unspecified severity; M65.9 Synovitis and tenosynovitis, unspecified; N18.2 Chronic kidney disease, stage 2 (mild); S93.104A Unspecified dislocation of right toe(s), initial encounter; X58.XXXA Exposure to other specified factors, initial encounter; Y93.89 Activity, other specified; Y92.89 Other specified places as the place of occurrence of the external cause; Y99.8 Other external cause status; Z79.2 Long term (current) use of antibiotics; Z89.422 Acquired absence of other left toe(s); Z79.4 Long term (current) use of insulin; Z68.30 Body mass index [BMI] 30.0-30.9, adult
CPT/HCPCS: 36415; 36573; 71045; 80048; 80053; 81003; 82010; 82803; 82947; 82962; 83036; 83540; 83550; 83605; 83690; 83735; 84145; 85025; 85610; 85651; 86140; 87040; 87070; 87075; 87076; 87205; 93005; 99285; A9585; G0378; J0295; J0696; J1644; J2020; J2250; J2543; J2704; J3010; C1751; J1815

== ENCOUNTER 2019-03-22 22:53 | Inpatient (IN) | payer BC ==
[~2019-03-22] VITALS: Ht 172.7 cm; Wt 86.2 kg
[~2019-03-22 22:53] MED LIST changes: +ACET325T14 PO; +HYDR-3341 PO; +ISOS10TA2 PO; +METF850T10 PO
[2019-03-23 00:44] LABS: BASOPHILS # (AUTO) 0.11 x10^3/uL (0-0.1); BASOPHILS % (AUTO) 1 % (0-1); EOSINOPHILS # (AUTO) 0.28 x10^3/uL (0-0.4); EOSINOPHILS % (AUTO) 4 % (1-7); LYMPHOCYTES # (AUTO) 1.91 x10^3/uL (1-3.4); LYMPHOCYTES % (AUTO) 25 % (22-44); MD NO; MEAN CORPUSCULAR HEMOGLOBIN 28.4 pg (27.5-34.5); MEAN CORPUSCULAR HGB CONC 33.9 g/dL (33.2-36.2); MEAN CORPUSCULAR VOLUME 83.6 fL (81-97); MEAN PLATELET VOLUME 6.8 fL (7.4-10.4); MONOCYTES # (AUTO) 0.69 x10^3/uL (0.2-0.8); MONOCYTES % (AUTO) 9 % (2-9); NEUTROPHILS # (AUTO) 4.77 x10^3/uL (1.8-6.8); NEUTROPHILS % (AUTO) 61 % (42-75); PLATELET COUNT 260 x10^3/uL (130-400); RED BLOOD COUNT 4.01 x10^6/uL (4.38-5.82); RED CELL DISTRIBUTION WIDTH 15.5 % (9.4-14.8)
[2019-03-23 00:54] LABS: ALBUMIN 2.8 g/dL (3.4-5.0); ANION GAP 7 mmol/L (5-15); CALCIUM 8.3 mg/dL (8.5-10.1); CHLORIDE 104 mmol/L (98-107); CREATININE 1.28 mg/dL (0.7-1.3)
[2019-03-23] MEDS ORDERED: CEFTAROLINE 600 MG in SODIUM CHLORIDE 0.9% 100 ML IV ONE (02:00)
--- NOTE | 2019-03-23 02:20 | NUR ---
erp does not want blood cultures drawn before abx.
[2019-03-23] MEDS ORDERED: HYDROcodone/APAP 5/325 TABLET PO PRN (02:30)
[2019-03-23] MEDS ORDERED: ACETAMINOPHEN 325 MG TABLET PO PRN (02:30)
--- NOTE | 2019-03-23 02:33 | NUR ---
BREAK RN NOTE: VSS UPDATED PT IS RESTING [facility] AT BED SIDE FOR ADMIT EVAL
[2019-03-23 02:43] LABS: HCT (SEDRATE) 33.6 % (39.2-51.8)
--- NOTE | 2019-03-23 02:58 | NUR ---
REPORT CALLED TO JOSE SIMS FOR 475
--- NOTE | 2019-03-23 03:01 | NUR ---
med req updated per pt report of current meds. pt stated he has not been able to fill the rest of his meds and does not know what they are.
[2019-03-23 03:04] LABS: HEMOGLOBIN A1C 8.6 % (4.2-6.3)
[2019-03-23 03:49] VITALS: BP 151/91
[2019-03-23 07:27] VITALS: BP 148/81
[2019-03-23] MEDS: INSULIN LISPRO 100 UNITS/ML, PEN SQ-INSULIN SCH ×5 (07:52→21:07)
[2019-03-23] MEDS: AMPICILLIN/SULBACTAM 3 GM in SODIUM CHLORIDE 0.9% 100 ML IV SCH ×2 (07:53→16:37)
[2019-03-23] MEDS ORDERED: SODIUM CHLORIDE 0.9% IV SCH (11:30)
[2019-03-23] MEDS ORDERED: DAPTOMYCIN IV SCH (11:30)
[2019-03-23] MEDS: INSULIN GLARGINE 100 UNITS/ML, PEN SQ-INSULIN SCH ×2 (12:03→21:07)
[2019-03-23 12:19] VITALS: BP 151/87
[2019-03-23] MEDS ORDERED: CATHFLO-ALTEPLASE 2 MG/2 ML CATHFLUSH ONE ×2 (15:00→17:00)
[2019-03-23] MEDS ORDERED: GADOBUTROL 10 MMOL/10 ML PFS ONE (15:25)
[2019-03-23] MEDS ORDERED: CATHFLO-ALTEPLASE 2 MG/2 ML CATHFLUSH PRN (16:00)
[2019-03-23] MEDS: DAPTOMYCIN 500 MG in SODIUM CHLORIDE 0.9% 100 ML IVPB SCH (17:21)
[2019-03-23 20:36] VITALS: BP 167/95
[2019-03-23] MEDS ORDERED: INSULIN GLARGINE 100 UNITS/ML, PEN SQ-INSULIN SCH (21:00)
[2019-03-24] MEDS: AMPICILLIN/SULBACTAM 3 GM in SODIUM CHLORIDE 0.9% 100 ML IV SCH ×3 (00:20→15:49)
[2019-03-24 04:48] LABS: BASOPHILS # (AUTO) 0.03 x10^3/uL (0-0.1); BASOPHILS % (AUTO) 1 % (0-1); EOSINOPHILS # (AUTO) 0.45 x10^3/uL (0-0.4); EOSINOPHILS % (AUTO) 9 % (1-7); LYMPHOCYTES # (AUTO) 1.51 x10^3/uL (1-3.4); LYMPHOCYTES % (AUTO) 29 % (22-44); MD NO; MEAN CORPUSCULAR HEMOGLOBIN 28.2 pg (27.5-34.5); MEAN CORPUSCULAR HGB CONC 33.5 g/dL (33.2-36.2); MEAN CORPUSCULAR VOLUME 84.2 fL (81-97); MEAN PLATELET VOLUME 6.7 fL (7.4-10.4); MONOCYTES # (AUTO) 0.38 x10^3/uL (0.2-0.8); MONOCYTES % (AUTO) 7 % (2-9); NEUTROPHILS # (AUTO) 2.88 x10^3/uL (1.8-6.8); NEUTROPHILS % (AUTO) 55 % (42-75); PLATELET COUNT 262 x10^3/uL (130-400); RED BLOOD COUNT 4.21 x10^6/uL (4.38-5.82); RED CELL DISTRIBUTION WIDTH 15.2 % (9.4-14.8)
[2019-03-24 04:50] LABS: ANION GAP 7 mmol/L (5-15); CALCIUM 8.6 mg/dL (8.5-10.1); CHLORIDE 103 mmol/L (98-107); CREATININE 0.78 mg/dL (0.7-1.3)
[2019-03-24 06:52] VITALS: BP 136/84
[2019-03-24] MEDS: INSULIN GLARGINE 100 UNITS/ML, PEN SQ-INSULIN SCH ×2 (07:53→21:32)
[2019-03-24] MEDS: INSULIN LISPRO 100 UNITS/ML, PEN SQ-INSULIN SCH ×4 (07:53→21:32)
[2019-03-24 13:35] VITALS: BP 143/84
[2019-03-24] MEDS: ENOXAPARIN 40 MG/0.4 ML SQ SCH (14:46)
[2019-03-24] MEDS: DAPTOMYCIN 500 MG in SODIUM CHLORIDE 0.9% 100 ML IVPB SCH (16:46)
[2019-03-24 21:33] VITALS: BP 159/94
[2019-03-25] MEDS: AMPICILLIN/SULBACTAM 3 GM in SODIUM CHLORIDE 0.9% 100 ML IV SCH ×2 (00:24→07:32)
[2019-03-25 01:15] VITALS: BP 142/89
[2019-03-25 05:28] LABS: ANION GAP 7 mmol/L (5-15); CALCIUM 9.1 mg/dL (8.5-10.1); CHLORIDE 104 mmol/L (98-107)
[2019-03-25 05:29] LABS: CREATININE 0.85 mg/dL (0.7-1.3)
[2019-03-25] MEDS: INSULIN GLARGINE 100 UNITS/ML, PEN SQ-INSULIN SCH (07:32)
[2019-03-25] MEDS: INSULIN LISPRO 100 UNITS/ML, PEN SQ-INSULIN SCH ×4 (07:32→21:19)
[2019-03-25 08:07] VITALS: BP 146/89
[2019-03-25] MEDS ORDERED: FLUCONAZOLE 200 MG TABLET PO SCH (10:00)
[2019-03-25] MEDS: ERTAPENEM 1 GM in SODIUM CHLORIDE 0.9% 50 ML IV SCH (10:35)
[2019-03-25] MEDS: ENOXAPARIN 40 MG/0.4 ML SQ SCH (13:47)
[2019-03-25 13:55] VITALS: BP 178/100
[2019-03-25] MEDS ORDERED: hydrALAzine 20 MG/ML, 1ML IV PRN (14:00)
[2019-03-25] MEDS: ISOSORBIDE DINITRATE 10 MG TABLET PO SCH ×2 (14:07→21:16)
[2019-03-25] MEDS: GABAPENTIN 300 MG CAPSULE PO SCH ×2 (14:07→21:00)
[2019-03-25] MEDS: DAPTOMYCIN 500 MG in SODIUM CHLORIDE 0.9% 100 ML IVPB SCH (16:32)
[2019-03-25 16:36] VITALS: BP 164/98
[2019-03-25] MEDS: CARVEDILOL 12.5 MG TABLET PO SCH (16:36)
[2019-03-25 18:22] VITALS: BP 152/84
[2019-03-25] MEDS ORDERED: INSULIN GLARGINE 100 UNITS/ML, PEN SQ-INSULIN SCH (21:00)
[2019-03-26 02:45] VITALS: BP 147/85
[2019-03-26 06:00] LABS: ALBUMIN 2.9 g/dL (3.4-5.0); ANION GAP 7 mmol/L (5-15); CHLORIDE 102 mmol/L (98-107); CREATININE 0.86 mg/dL (0.7-1.3)
[2019-03-26] MEDS: CARVEDILOL 12.5 MG TABLET PO SCH (06:34)
[2019-03-26 08:00] VITALS: BP 154/78
[2019-03-26] MEDS: ISOSORBIDE DINITRATE 10 MG TABLET PO SCH (08:41)
[2019-03-26] MEDS: INSULIN LISPRO 100 UNITS/ML, PEN SQ-INSULIN SCH ×2 (08:54→12:09)
[2019-03-26] MEDS: GABAPENTIN 300 MG CAPSULE PO SCH (08:54)
[2019-03-26] MEDS ORDERED: INSULIN GLARGINE 100 UNITS/ML, PEN SQ-INSULIN SCH (09:00)
[2019-03-26] MEDS: ERTAPENEM 1 GM in SODIUM CHLORIDE 0.9% 50 ML IV SCH (10:01)
[2019-03-26] MEDS ORDERED: ERTA1VIA4 IV (12:00)
[2019-03-26] MEDS ORDERED: INSU100I11 SQ-INSULIN (12:00)
[2019-03-26] MEDS ORDERED: INSU100I13 SQ-INSULIN (12:00)
[2019-03-26] MEDS ORDERED: DAPT500V6 IV (12:00)
[2019-03-26] MEDS: DAPTOMYCIN 500 MG in SODIUM CHLORIDE 0.9% 100 ML IVPB SCH (12:08)
== END 2019-03-26 13:20 | disposition home or self-care (01) | DRG 638 ==
LOC: ED 03-23 00:41 → EDIP 03-23 02:02 → 4NOR 03-23 03:34
PROVIDERS: ADMIT Internal Medicine; ATTEND Internal Medicine
DX: E11.69 Type 2 diabetes mellitus with other specified complication (principal); M86.171 Other acute osteomyelitis, right ankle and foot; L03.115 Cellulitis of right lower limb; B96.5 Pseudomonas (aeruginosa) (mallei) (pseudomallei) as the cause of diseases classified elsewhere; E11.22 Type 2 diabetes mellitus with diabetic chronic kidney disease; E11.610 Type 2 diabetes mellitus with diabetic neuropathic arthropathy; E11.621 Type 2 diabetes mellitus with foot ulcer; I12.9 Hypertensive chronic kidney disease with stage 1 through stage 4 chronic kidney disease, or unspecified chronic kidney disease; N18.2 Chronic kidney disease, stage 2 (mild); E11.65 Type 2 diabetes mellitus with hyperglycemia; E78.5 Hyperlipidemia, unspecified; E11.42 Type 2 diabetes mellitus with diabetic polyneuropathy; L97.509 Non-pressure chronic ulcer of other part of unspecified foot with unspecified severity; Z79.4 Long term (current) use of insulin; Z91.19 Patient's noncompliance with other medical treatment and regimen
CPT/HCPCS: 36415; 71045; 80048; 82040; 82962; 83036; 85025; 85651; 86140; 87070; 87075; 87077; 87186; 87205; 96374; A9585; G0378; J0295; J0712; J0878; J1335; J1650; J1815

== ENCOUNTER → 2019-03-30 | Outpatient (CLI) | payer BC ==
[~2019-03-30] MED LIST changes: +DAPT500V6 IV; +ERTA1VIA4 IV
== END | disposition home or self-care (01) ==
LOC: WOUND 09:42
PROVIDERS: ATTEND Internal Medicine Infectious Disease
DX: T81.89XD Other complications of procedures, not elsewhere classified, subsequent encounter (principal); E11.621 Type 2 diabetes mellitus with foot ulcer; L97.512 Non-pressure chronic ulcer of other part of right foot with fat layer exposed; M14.672 Charcot's joint, left ankle and foot; M14.671 Charcot's joint, right ankle and foot; E11.21 Type 2 diabetes mellitus with diabetic nephropathy; E11.69 Type 2 diabetes mellitus with other specified complication; M86.171 Other acute osteomyelitis, right ankle and foot; M86.071 Acute hematogenous osteomyelitis, right ankle and foot; E11.42 Type 2 diabetes mellitus with diabetic polyneuropathy; E11.65 Type 2 diabetes mellitus with hyperglycemia; I13.10 Hypertensive heart and chronic kidney disease without heart failure, with stage 1 through stage 4 chronic kidney disease, or unspecified chronic kidney disease; E11.22 Type 2 diabetes mellitus with diabetic chronic kidney disease; N18.2 Chronic kidney disease, stage 2 (mild); L84 Corns and callosities; E78.5 Hyperlipidemia, unspecified; M00.09 Staphylococcal polyarthritis; F32.9 Major depressive disorder, single episode, unspecified; E66.9 Obesity, unspecified; Z68.31 Body mass index [BMI] 31.0-31.9, adult; Z79.899 Other long term (current) drug therapy; Z89.422 Acquired absence of other left toe(s); Z87.891 Personal history of nicotine dependence; Z79.01 Long term (current) use of anticoagulants; Z79.4 Long term (current) use of insulin; Y83.8 Other surgical procedures as the cause of abnormal reaction of the patient, or of later complication, without mention of misadventure at the time of the procedure
CPT/HCPCS: 11042; 99214

== ENCOUNTER → 2019-04-06 | Outpatient (CLI) | payer BC | END | disposition home or self-care (01) | LOC: WOUND 08:02 | PROVIDERS: ATTEND Nurse Practitioner Family | DX: E11.621 Type 2 diabetes mellitus with foot ulcer (principal); L97.516 Non-pressure chronic ulcer of other part of right foot with bone involvement without evidence of necrosis; E11.69 Type 2 diabetes mellitus with other specified complication; M86.071 Acute hematogenous osteomyelitis, right ankle and foot; M86.171 Other acute osteomyelitis, right ankle and foot; E11.21 Type 2 diabetes mellitus with diabetic nephropathy; E11.42 Type 2 diabetes mellitus with diabetic polyneuropathy; E11.65 Type 2 diabetes mellitus with hyperglycemia; E11.649 Type 2 diabetes mellitus with hypoglycemia without coma; I12.9 Hypertensive chronic kidney disease with stage 1 through stage 4 chronic kidney disease, or unspecified chronic kidney disease; E11.22 Type 2 diabetes mellitus with diabetic chronic kidney disease; N18.2 Chronic kidney disease, stage 2 (mild); M14.671 Charcot's joint, right ankle and foot; M14.672 Charcot's joint, left ankle and foot; L84 Corns and callosities; E78.5 Hyperlipidemia, unspecified; M19.90 Unspecified osteoarthritis, unspecified site; F32.9 Major depressive disorder, single episode, unspecified; E66.9 Obesity, unspecified; Z68.31 Body mass index [BMI] 31.0-31.9, adult; Z89.422 Acquired absence of other left toe(s); Z87.891 Personal history of nicotine dependence; Z79.01 Long term (current) use of anticoagulants; Z79.4 Long term (current) use of insulin; Z79.899 Other long term (current) drug therapy | CPT/HCPCS: 11044 ==

== ENCOUNTER → 2019-04-13 | Outpatient (CLI) | payer BC | END | disposition home or self-care (01) | LOC: WOUND 09:50 | PROVIDERS: ATTEND Nurse Practitioner Family | DX: T81.89XD Other complications of procedures, not elsewhere classified, subsequent encounter (principal); E11.621 Type 2 diabetes mellitus with foot ulcer; L97.516 Non-pressure chronic ulcer of other part of right foot with bone involvement without evidence of necrosis; M14.671 Charcot's joint, right ankle and foot; M14.672 Charcot's joint, left ankle and foot; E11.42 Type 2 diabetes mellitus with diabetic polyneuropathy; E11.65 Type 2 diabetes mellitus with hyperglycemia; E11.649 Type 2 diabetes mellitus with hypoglycemia without coma; E11.21 Type 2 diabetes mellitus with diabetic nephropathy; E11.69 Type 2 diabetes mellitus with other specified complication; M86.071 Acute hematogenous osteomyelitis, right ankle and foot; M86.171 Other acute osteomyelitis, right ankle and foot; M86.172 Other acute osteomyelitis, left ankle and foot; I12.9 Hypertensive chronic kidney disease with stage 1 through stage 4 chronic kidney disease, or unspecified chronic kidney disease; N18.2 Chronic kidney disease, stage 2 (mild); E11.22 Type 2 diabetes mellitus with diabetic chronic kidney disease; L84 Corns and callosities; E78.5 Hyperlipidemia, unspecified; M19.90 Unspecified osteoarthritis, unspecified site; F32.9 Major depressive disorder, single episode, unspecified; E66.9 Obesity, unspecified; Z68.31 Body mass index [BMI] 31.0-31.9, adult; Z79.899 Other long term (current) drug therapy; Z89.422 Acquired absence of other left toe(s); Z87.891 Personal history of nicotine dependence; Z79.01 Long term (current) use of anticoagulants; Z79.4 Long term (current) use of insulin; Y83.8 Other surgical procedures as the cause of abnormal reaction of the patient, or of later complication, without mention of misadventure at the time of the procedure | CPT/HCPCS: 11044 ==

== ENCOUNTER 2019-04-16 11:35 | Inpatient (IN) | payer BC ==
[~2019-04-16] VITALS: Ht 172.7 cm; Wt 94.1 kg
[~2019-04-16 11:35] MED LIST changes: +BUPIVACAINE/PF 0.5% ONE; +LIDOCAINE 1%, 20ML ONE
[2019-04-16] MEDS ORDERED: LACTATED RINGERS 1,000 ML IV SCH (12:24)
[2019-04-16] MEDS ORDERED: VANCOMYCIN 1,000 MG ONE ×2 (12:26→15:33)
[2019-04-16] MEDS ORDERED: TOBRAMYCIN SULFATE 1.2 GM IMP ONE ×2 (12:26→15:33)
[2019-04-16] MEDS ORDERED: FENTANYL PF 250 MCG/5ML ONE (12:44)
[2019-04-16] MEDS ORDERED: MIDAZOLAM 1 MG/ML, 2ML ONE (12:44)
[2019-04-16 12:59] VITALS: BP 120/75
[2019-04-16] MEDS ORDERED: INSU100I13 SQ-INSULIN (12:59)
[2019-04-16] MEDS ORDERED: CARV6.252 PO (12:59)
[2019-04-16] MEDS ORDERED: ISOS10TA6 PO (12:59)
[2019-04-16] MEDS ORDERED: METF850T10 PO (12:59)
[2019-04-16] MEDS ORDERED: INSU100C SQ-INSULIN (12:59)
[2019-04-16] MEDS ORDERED: FENTANYL PF 100 MCG/2ML ONE (13:14)
[2019-04-16] MEDS ORDERED: HALOPERIDOL 5 MG/ML IV PRN (13:30)
[2019-04-16] MEDS ORDERED: hydrALAzine 20 MG/ML, 1ML IV PRN (13:30)
[2019-04-16] MEDS ORDERED: OXYcodone 5 MG/5 ML ORAL.SOL UDC PO PRN ×2 (13:30→19:00)
[2019-04-16] MEDS ORDERED: PROMETHAZINE 25 MG/ML, 1ML IV PRN (13:30)
[2019-04-16] MEDS ORDERED: FENTANYL PF 100 MCG/2ML IV PRN (13:30)
[2019-04-16] MEDS ORDERED: HYDROmorphone 2 MG/ML, 1ML IVPush PRN (13:30)
[2019-04-16] MEDS ORDERED: DIAZEPAM 5 MG/ML, 2ML IVPush PRN (13:30)
[2019-04-16] MEDS ORDERED: MEPERIDINE/PF 25MG/0.5ML IVPush PRN (13:30)
[2019-04-16 18:54] VITALS: BP 131/73
[2019-04-16] MEDS ORDERED: morphine SULFATE 10 MG/ML, 1ML IV PRN (19:00)
[2019-04-16] MEDS ORDERED: morphine SULFATE 10 MG/ML, 1ML IVPush PRN (19:00)
[2019-04-16] MEDS ORDERED: INSULIN LISPRO 100 UNITS/ML, PEN SQ-INSULIN SCH (19:30)
[2019-04-16 19:40] LABS: BASOPHILS # (AUTO) 0.01 x10^3/uL (0-0.1); BASOPHILS % (AUTO) 0 % (0-1); EOSINOPHILS # (AUTO) 0.02 x10^3/uL (0-0.4); EOSINOPHILS % (AUTO) 0 % (1-7); LYMPHOCYTES # (AUTO) 0.54 x10^3/uL (1-3.4); LYMPHOCYTES % (AUTO) 7 % (22-44); MD NO; MEAN CORPUSCULAR HEMOGLOBIN 27.6 pg (27.5-34.5); MEAN CORPUSCULAR HGB CONC 32.9 g/dL (33.2-36.2); MEAN PLATELET VOLUME 6.4 fL (7.4-10.4); MONOCYTES % (AUTO) 1 % (2-9); NEUTROPHILS # (AUTO) 7.68 x10^3/uL (1.8-6.8); NEUTROPHILS % (AUTO) 92 % (42-75); PLATELET COUNT 275 x10^3/uL (130-400); RED BLOOD COUNT 4.34 x10^6/uL (4.38-5.82); RED CELL DISTRIBUTION WIDTH 15.9 % (9.4-14.8)
[2019-04-16 19:52] LABS: ALANINE AMINOTRANSFERASE 20 U/L (12-78); ALBUMIN 2.8 g/dL (3.4-5.0); ANION GAP 5 mmol/L (5-15); CALCIUM 8.2 mg/dL (8.5-10.1); CHLORIDE 103 mmol/L (98-107); CREATININE 1.01 mg/dL (0.7-1.3)
[2019-04-16 19:54] LABS: ALKALINE PHOSPHATASE 104 U/L (45-117); BILIRUBIN,TOTAL 0.2 mg/dL (0.2-1.0); TOTAL PROTEIN 6.9 g/dL (6.4-8.2)
[2019-04-16 20:20] LABS: HEMOGLOBIN A1C 9.5 % (4.2-6.3)
[2019-04-16] MEDS: CARVEDILOL 6.25 MG TABLET PO SCH (20:28)
[2019-04-16] MEDS: ISOSORBIDE MONONITRATE 20 MG TABLET PO SCH (20:28)
[2019-04-16] MEDS: INSULIN GLARGINE 100 UNITS/ML, PEN SQ-INSULIN SCH (22:06)
[2019-04-17 01:01] VITALS: BP 122/71
[2019-04-17 04:05] VITALS: BP 135/76
[2019-04-17 07:33] VITALS: BP 131/78
[2019-04-17] MEDS: ISOSORBIDE MONONITRATE 20 MG TABLET PO SCH ×2 (07:43→16:23)
[2019-04-17] MEDS: CARVEDILOL 6.25 MG TABLET PO SCH (07:43)
[2019-04-17] MEDS: INSULIN LISPRO 100 UNITS/ML, PEN SQ-INSULIN SCH ×3 (07:43→16:26)
[2019-04-17] MEDS: INSULIN GLARGINE 100 UNITS/ML, PEN SQ-INSULIN SCH (07:44)
[2019-04-17 14:52] VITALS: BP 143/80
== END 2019-04-17 16:45 | disposition home or self-care (01) | DRG 41 ==
LOC: OUT 11:35 → 4NOR 18:35 → OUT 19:43 → 4NOR 19:44
PROVIDERS: ADMIT Orthopaedic Surgery; ATTEND Orthopaedic Surgery
PROC: 3E0T3BZ Introduction of Anesthetic Agent into Peripheral Nerves and Plexi, Percutaneous Approach (ICD-10-PCS; 2019-04-16)
PROC: 0QBN0ZZ Excision of Right Metatarsal, Open Approach (ICD-10-PCS; 2019-04-16)
PROC: 0L8V0ZZ Division of Right Foot Tendon, Open Approach (ICD-10-PCS; 2019-04-16)
PROC: 0QBN0ZZ Excision of Right Metatarsal, Open Approach (ICD-10-PCS; 2019-04-16)
PROC: 0QBN0ZZ Excision of Right Metatarsal, Open Approach (ICD-10-PCS; 2019-04-16)
PROC: 0SN Lower Joints, Release (ICD-10-PCS; 2019-04-16)
PROC: 0QSL05Z Reposition Right Tarsal with External Fixation Device, Open Approach (ICD-10-PCS; 2019-04-16)
PROC: 0SH Lower Joints, Insertion (ICD-10-PCS; 2019-04-16)
PROC: 3E0T3BZ Introduction of Anesthetic Agent into Peripheral Nerves and Plexi, Percutaneous Approach (ICD-10-PCS; principal; 2019-04-16 13:45)
DX: E11.610 Type 2 diabetes mellitus with diabetic neuropathic arthropathy (principal); M86.171 Other acute osteomyelitis, right ankle and foot; L02.611 Cutaneous abscess of right foot; E11.69 Type 2 diabetes mellitus with other specified complication; E11.621 Type 2 diabetes mellitus with foot ulcer; E11.649 Type 2 diabetes mellitus with hypoglycemia without coma; E11.65 Type 2 diabetes mellitus with hyperglycemia; E78.5 Hyperlipidemia, unspecified; I12.9 Hypertensive chronic kidney disease with stage 1 through stage 4 chronic kidney disease, or unspecified chronic kidney disease; I25.10 Atherosclerotic heart disease of native coronary artery without angina pectoris; L97.519 Non-pressure chronic ulcer of other part of right foot with unspecified severity; N18.2 Chronic kidney disease, stage 2 (mild); Z16.11 Resistance to penicillins; B96.1 Klebsiella pneumoniae [K. pneumoniae] as the cause of diseases classified elsewhere; Z79.4 Long term (current) use of insulin; Z86.14 Personal history of Methicillin resistant Staphylococcus aureus infection
CPT/HCPCS: 73620; 76000; J3260; J3490; S0020; 80053; 82962; 83036; 85025; 87070; 87075; 87077; 87102; 87116; 87186; 87205; 87206; 88304; 88311; C1713; C1776; G0378; J2250; J3010; J3370; J1815; J7120

== ENCOUNTER → 2019-05-04 | Outpatient (CLI) | payer BC ==
[~2019-05-04] MED LIST changes: -BUPIVACAINE/PF 0.5% ONE; +CARV6.252 PO; +INSU100C SQ-INSULIN; +ISOS10TA6 PO; -LIDOCAINE 1%, 20ML ONE
== END | disposition home or self-care (01) ==
LOC: WOUND 07:56
PROVIDERS: ATTEND Internal Medicine Infectious Disease
DX: T81.89XD Other complications of procedures, not elsewhere classified, subsequent encounter (principal); E11.621 Type 2 diabetes mellitus with foot ulcer; L97.516 Non-pressure chronic ulcer of other part of right foot with bone involvement without evidence of necrosis; M14.671 Charcot's joint, right ankle and foot; M14.672 Charcot's joint, left ankle and foot; E11.65 Type 2 diabetes mellitus with hyperglycemia; E11.649 Type 2 diabetes mellitus with hypoglycemia without coma; E11.21 Type 2 diabetes mellitus with diabetic nephropathy; E11.69 Type 2 diabetes mellitus with other specified complication; M86.071 Acute hematogenous osteomyelitis, right ankle and foot; M86.171 Other acute osteomyelitis, right ankle and foot; M86.172 Other acute osteomyelitis, left ankle and foot; I12.9 Hypertensive chronic kidney disease with stage 1 through stage 4 chronic kidney disease, or unspecified chronic kidney disease; N18.2 Chronic kidney disease, stage 2 (mild); E11.22 Type 2 diabetes mellitus with diabetic chronic kidney disease; L84 Corns and callosities; E78.5 Hyperlipidemia, unspecified; M19.90 Unspecified osteoarthritis, unspecified site; F32.9 Major depressive disorder, single episode, unspecified; E66.9 Obesity, unspecified; Z68.31 Body mass index [BMI] 31.0-31.9, adult; Z79.899 Other long term (current) drug therapy; Z89.422 Acquired absence of other left toe(s); Z87.891 Personal history of nicotine dependence; Z79.01 Long term (current) use of anticoagulants; Z79.4 Long term (current) use of insulin; Y83.8 Other surgical procedures as the cause of abnormal reaction of the patient, or of later complication, without mention of misadventure at the time of the procedure
CPT/HCPCS: 99214